=== PATIENT | male | born 1945 | race African-American/Black ===

== ENCOUNTER 2017-03-13 08:38 | Inpatient (IN) | payer MEDICARE, MEDICAID ==
[~2017-03-13] VITALS: Ht 165.1 cm; Wt 56.7 kg
[~2017-03-13 08:38] MED LIST: CIPROFLOXACIN500 M2 ORAL
[2017-03-13 09:00] VITALS: BP 181/87
[2017-03-13 09:38] LABS: MEAN CORPUSCULAR HEMOGLOBIN 29.9 PG (27.0-31.0); MEAN CORPUSCULAR HGB CONC 33.3 G/DL (32.0-36.0); MEAN CORPUSCULAR VOLUME 90 FL (80-99); MEAN PLATELET VOLUME 12.6 FL (6.5-10.1); PLATELET COUNT 130 K/UL (150-450); RED BLOOD COUNT 4.69 M/UL (4.70-6.10); RED CELL DISTRIBUTION WIDTH 12.3 % (11.6-14.8); WHITE BLOOD COUNT 12.7 K/UL (4.8-10.8)
[2017-03-13 09:40] LABS: O2 CONTENT VENOUS 43.7
[2017-03-13] MEDS ORDERED: Morphine Sulfate 4mg/ml Inj IVP ONE (09:45)
[2017-03-13 10:07] LABS: ALANINE AMINOTRANSFERASE 19 U/L (3-41); ALBUMIN/GLOBULIN RATIO 1.4 (1.0-2.7); ANION GAP 13 (5-15); ASPARTATE AMINO TRANSFERASE 29 U/L (5-40); CALCIUM 11.3 mg/dL (8.6-10.2); CARBON DIOXIDE 35 mEQ/L (20-30); CHLORIDE 96 mEQ/L (98-107); CREATININE 3.1 mg/dL (0.7-1.2); HEMOLYSIS 5; LIPASE 26 U/L (< 60); SODIUM 144 mEQ/L (135-145); TOTAL PROTEIN 8.1 g/dL (6.6-8.7)
[2017-03-13 10:11] LABS: REFLEX LACTIC ACID YES OR NO YES
[2017-03-13 10:23] LABS: BAND NEUTROPHILS % (MANUAL) 0 % (0-8); BASOPHILS % (MANUAL) 0 % (0-2); EOSINOPHILS % (MANUAL) 0 % (0-3); LYMPHOCYTES % (MANUAL) 9 % (20-45); NEUTROPHILS % (MANUAL) 87 % (45-75); PLATELET ESTIMATE DECREASED; PLATELET MORPHOLOGY NORMAL; STOMATOCYTES 1+; TOTAL CELLS COUNTED 100
[2017-03-13 10:24] LABS: MICROCYTES 1+
--- NOTE | 2017-03-13 10:30 | Emergency Room Report ---
History of Present Illness General Chief Complaint: Abdominal Pain Source: Patient Present Illness Allergies: Coded Allergies: NO KNOWN ALLERGIES (Unverified Allergy, Unknown, 03/31/15) Patient History Past Medical History: see triage record, HTN Past Surgical History: none - hernia repair, other Pertinent Family History: none Nursing Documentation-H Past Medical History: No History, Except For Hx Hypertension: Yes - glaucoma Review of Systems Gastrointestinal: Reports: abdominal pain, constipation All Other Systems: negative except mentioned in HPI Physical Exam Vital Signs Date Time Temp Pulse Resp B/P Pulse Ox O2 Delivery O2 Flow Rate FiO2 03/13/17 08:53 98.2 86 18 196/102 98 Room Air General Appearance: normal inspection, well appearing, no apparent distress, alert, GCS 15, non-toxic Head: normocephalic, atraumatic Eyes: bilateral eye EOMI, bilateral eye PERRL, bilateral eye normal inspection ENT: normal ENT inspection, normal pharynx, normal voice, moist mucus membranes Neck: normal inspection, full range of motion, supple, no bony tend Respiratory: normal inspection, lungs clear, normal breath sounds, no respiratory distress, no retraction, no wheezing, speaking full sentences, chest symmetrical Cardiovascular #1: normal inspection, regular rate, rhythm, no edema, normal capillary refill Gastrointestinal: normal inspection, other - LLQ tenderness +voluntary guarding Genitourinary: no CVA tenderness Musculoskeletal: normal inspection, back normal, normal range of motion, non- tender Neurologic: normal inspection, alert, oriented x3, responsive, motor strength/ tone normal, sensory intact, normal gait, speech normal Medical Decision Making Medicare Attestation I, Surinder Sheehan MD hereby attest that the medical record entry for date of service, 03/13/17ccurately reflects signatures/notations that I made in my capacity as MD when I treated/diagnosed the above listed Medicare beneficiary. I attest that this information is true, accurate and complete to the best of my knowledge. I understand that any falsification, omission, or concealment of material fact may subject me to administrative, civil, or criminal liability. This patient warrants hospital admission for extreme of age and has a condition that cannot be treated as outpatient. ER Course 71 yo M with 3 days of constipation and abd pain ddx: diverticulitis / intraabdominal surgical pathology/appy, mesenteric ischemia plans labs, pain control, CTA abdomen ER course: Labs: leukocytosis, cr 3.1 CT: BPH with markedly filled bladder, poss mild colitis EKG: nsr no acute changes due to patients renal failure, unable to prform CT, will perform CT with oral contrast only patient had not had urine out put since being in ED, informed that we musdt place espinoza, patient refused x 2, pt with capacity patient treated for pain Disposition: Patient is to be admitted to med-surg unit. DW with hospitalist EKG Diagnostic Results Rate: normal Rhythm: NSR ST Segments: no acute changes Last Vital Signs Date Time Temp Pulse Resp B/P Pulse Ox O2 Delivery O2 Flow Rate FiO2 03/13/17 09:00 99.1 80 23 181/87 100 Room Air Referrals: NOT CHOSEN IPA/,REFERRING (PCP) Surinder Sheehan M.D. Mar 13, 2017 10:30
[2017-03-13 12:30] VITALS: BP 180/84
--- NOTE | 2017-03-13 14:34 | Diagnostic Imaging Report ---
Indication: Abdominal pain constipation Technique: Spiral acquisitions obtained through the abdomen and pelvis. No oral contrast utilized, per emergency room physician request No IV contrast utilized, due to renal insufficiency.. Multiplanar reconstructions were generated. Total dose length product 459 mGycm. CTDIvol(s) 10 mGy. Dose reduction achieved using automated exposure control Comparison: None Findings: There is marked enlargement of the prostate, which measures 6 cm AP by 5 cm transverse by 7 cm craniocaudad. It is lobulated. It indents the bladder floor. The bladder is markedly distended. There is mild bilateral hydronephrosis and hydroureter. No focal ureteral obstructing lesion demonstrated. No renal or ureteral calculi. Lack of IV contrast limits assessment of the renal parenchyma. There is a 1.3 cm cyst in the upper pole of the right kidney, an 8 mm cyst in the interpolar region of the right kidney, a 1 cm lower pole left renal cyst. Lack of IV contrast limits assessment of the other solid organs. The liver, gallbladder, bile ducts, pancreas, spleen, adrenals are unremarkable. The ascending colon is mildly distended with fluid. Transverse and descending colon is fluid and gas filled, upper limits of normal in caliber. No evidence of diverticulosis or diverticulitis. No small bowel distention or small bowel wall thickening. The appendix is not definitely demonstrated, but no findings to suggest acute appendicitis are evident. The esophagus is mildly distended, contains contrast. The duodenum and stomach are unremarkable. Trace free intraperitoneal fluid is present. There is edema of the anterior pelvic wall subcutaneous fat. The included lung bases are clear. The bones demonstrate degenerative changes of the lower lumbar spine. Impression: Markedly enlarged lobulated prostate. Probably on the basis of benign prostatic hypertrophy, neoplasm not excludable Marked bladder distention, likely secondary to the above Mild bilateral hydronephrosis and hydroureter, likely secondary to the above Fluid-filled borderline distended proximal colon. May indicate diarrhea or mild colitis. Correlate with clinical findings Trace free intraperitoneal fluid Mildly dilated contrast-filled esophagus could indicate gastroesophageal reflux Nonspecific edema of the anterior pelvic wall subcutaneous fat Other findings as noted, including degenerative spondylosis, bilateral renal cysts The CT scanner at [facility] is accredited by the [employer] and the scans are performed using protocols designed to limit radiation exposure to as low as reasonably achievable to attain images of sufficient resolution adequate for diagnostic evaluation.
--- NOTE | 2017-03-13 15:40 | Infectious Diseases Prog Note ---
Assessment/Plan Problems: (1) UTI (urinary tract infection) Assessment & Plan: suspect due to obstructive uropathy , will send urine culture and start cefepime empirically (2) Colitis, acute Assessment & Plan: will send stool for culture and C diff and start cefepime with metronidazol empirically (3) Sepsis Assessment & Plan: due to the above will send blood culture and start cefepime with metronidazole empirically (4) Enlarged prostate Assessment & Plan: recommend urology eval , and renal US (5) KELIN (acute kidney injury) Assessment & Plan: suspect due to obstructive uropathy , recommend urology eval , espinoza cath, monitor UOP, and renal consult (6) Abdominal pain Assessment & Plan: due to the above, continue pain management as per the primary team Subjective Allergies: Coded Allergies: NO KNOWN ALLERGIES (Unverified Allergy, Unknown, 03/31/15) Objective Vital Signs Last 24 Hour Vital Signs Date Time Temp Pulse Resp B/P Pulse Ox O2 Delivery O2 Flow Rate FiO2 03/13/17 12:30 73 16 180/84 100 Room Air 03/13/17 10:35 99.1 03/13/17 09:00 99.1 80 23 181/87 100 Room Air 03/13/17 08:53 98.2 86 18 196/102 98 Room Air Height (Feet): 5 Height (Inches): 5.00 Weight (Pounds): 125 Laboratory Tests Test 03/13/17 09:20 03/13/17 09:30 03/13/17 11:45 White Blood Count 12.7 K/UL (4.8-10.8) H Red Blood Count 4.69 M/UL (4.70-6.10) L Hemoglobin 14.0 G/DL (14.2-18.0) L Hematocrit 42.1 % (42.0-52.0) Mean Corpuscular Volume 90 FL (80-99) Mean Corpuscular Hemoglobin 29.9 PG (27.0-31.0) Mean Corpuscular Hemoglobin Concent 33.3 G/DL (32.0-36.0) Red Cell Distribution Width 12.3 % (11.6-14.8) Platelet Count 130 K/UL (150-450) L Mean Platelet Volume 12.6 FL (6.5-10.1) H Neutrophils (%) (Auto) % (45.0-75.0) Lymphocytes (%) (Auto) % (20.0-45.0) Monocytes (%) (Auto) % (1.0-10.0) Eosinophils (%) (Auto) % (0.0-3.0) Basophils (%) (Auto) % (0.0-2.0) Differential Total Cells Counted 100 Neutrophils % (Manual) 87 % (45-75) H Lymphocytes % (Manual) 9 % (20-45) L Monocytes % (Manual) 4 % (1-10) Eosinophils % (Manual) 0 % (0-3) Basophils % (Manual) 0 % (0-2) Band Neutrophils 0 % (0-8) Platelet Estimate Decreased L Platelet Morphology Normal Microcytosis 1+ Stomatocytes 1+ Sodium Level 144 mEQ/L (135-145) Potassium Level 4.0 mEQ/L (3.4-4.9) Chloride Level 96 mEQ/L (98-107) L Carbon Dioxide Level 35 mEQ/L (20-30) H Anion Gap 13 (5-15) Blood Urea Nitrogen 16 mg/dL (7-23) Creatinine 3.1 mg/dL (0.7-1.2) H Estimat Glomerular Filtration Rate mL/min (>60) Glucose Level 127 mg/dL (74-106) H Lactic Acid Level 2.50 mmol/L (0.66-2.22) H 2.10 mmol/L (0.66-2.22) Calcium Level 11.3 mg/dL (8.6-10.2) H Total Bilirubin 0.7 mg/dL (0.0-1.2) Aspartate Amino Transf (AST/SGOT) 29 U/L (5-40) Alanine Aminotransferase (ALT/SGPT) 19 U/L (3-41) Alkaline Phosphatase 119 U/L (40-129) Total Protein 8.1 g/dL (6.6-8.7) Albumin 4.8 g/dL (3.5-5.2) Globulin 3.3 g/dL Albumin/Globulin Ratio 1.4 (1.0-2.7) Lipase 26 U/L (< 60) Venous Blood pH Pending Venous Blood Partial Pressure CO2 Pending Venous Blood Partial Pressure O2 Pending Venous Blood HCO3 Pending Venous Blood Total Carbon Dioxide Pending Venous Bld O2 Saturation (Measured) 43.7 Venous Blood Oxygen Saturation Pending Venous Blood Base Excess Pending Methemoglobin 0.8 Sodium (Blood Gas) Pending Current Medications Medications (Trade) Dose Ordered Sig/Dexter Route PRN Reason Start Time Stop Time Status Last Admin Dose Admin Sodium Chloride (Sodium Chloride 1000ml bag) 1,000 ml @ 125 mls/hr Q8H IV 03/13/17 10:30 04/12/17 10:29 03/13/17 10:21 Philip Jensen M.D. Mar 13, 2017 15:40
[2017-03-13] MEDS ORDERED: Cefepime HCl 1 GM in D5W 55 ML IVPB SCH (15:45)
[2017-03-13 16:00] VITALS: BP 158/92
[2017-03-13] MEDS ORDERED: Zolpidem 5mg tab ORAL PRN (16:00)
[2017-03-13] MEDS ORDERED: Mylanta II UD 30ml ORAL PRN (16:00)
[2017-03-13] MEDS ORDERED: LORazepam Inj 2mg/ml 1ml IV PRN (16:00)
[2017-03-13] MEDS ORDERED: Miralax 17gm pkt ORAL PRN (16:00)
[2017-03-13] MEDS ORDERED: Cefepime 1gm in D5W 55ml IVPB ONE (18:00)
[2017-03-13] MEDS: metroNIDAZOLE 500mg 100 ML IVPB SCH (18:16)
[2017-03-13 18:34] LABS: URIC ACID 6.7 mg/dL (3.0-7.5)
[2017-03-13] MEDS: Morphine Sulfate 2mg/ml Inj IVP PRN ×2 (18:46→22:40)
[2017-03-13 20:00] VITALS: BP 189/108
--- NOTE | 2017-03-13 20:00 | Consultation ---
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 Ct of abdomen showed enlarged prostate and hydronephrosis. He was initially refused espinoza, but eventually he agreed. Allergies: Coded Allergies: NO KNOWN ALLERGIES (Unverified Allergy, Unknown, 03/31/15) Medication History Scheduled Ciprofloxacin Hcl* (Ciprofloxacin Hcl*), 500 MG ORAL Q12H Patient History Healthcare decision maker Resuscitation status Full Code Advanced Directive on File Past Medical/Surgical History Past Medical/Surgical History: (1) Enlarged prostate (2) Hypertension Review of Systems All Other Systems: negative except mentioned in HPI Physical Exam General Appearance: WD/WN Lines, tubes and drains: peripheral, central line HEENT: normocephalic, atraumatic Neck: non-tender, normal alignment Respiratory/Chest: chest wall non-tender, lungs clear Breasts: no masses Cardiovascular/Chest: normal peripheral pulses, normal rate Abdomen: normal bowel sounds, non tender Genitourinary/Rectal: normal genital exam, normal rectal exam Extremities: normal range of motion, non-tender 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 Last 24 Hour Vital Signs Date Time Temp Pulse Resp B/P Pulse Ox O2 Delivery O2 Flow Rate FiO2 03/13/17 19:16 99.1 03/13/17 16:00 98.2 77 17 158/92 99 Room Air 03/13/17 12:30 73 16 180/84 100 Room Air 03/13/17 10:35 99.1 03/13/17 09:00 99.1 80 23 181/87 100 Room Air 03/13/17 08:53 98.2 86 18 196/102 98 Room Air Laboratory Tests Test 03/13/17 09:20 03/13/17 09:30 03/13/17 11:45 03/13/17 17:40 White Blood Count 12.7 K/UL (4.8-10.8) H Red Blood Count 4.69 M/UL (4.70-6.10) L Hemoglobin 14.0 G/DL (14.2-18.0) L Hematocrit 42.1 % (42.0-52.0) Mean Corpuscular Volume 90 FL (80-99) Mean Corpuscular Hemoglobin 29.9 PG (27.0-31.0) Mean Corpuscular Hemoglobin Concent 33.3 G/DL (32.0-36.0) Red Cell Distribution Width 12.3 % (11.6-14.8) Platelet Count 130 K/UL (150-450) L Mean Platelet Volume 12.6 FL (6.5-10.1) H Neutrophils (%) (Auto) % (45.0-75.0) Lymphocytes (%) (Auto) % (20.0-45.0) Monocytes (%) (Auto) % (1.0-10.0) Eosinophils (%) (Auto) % (0.0-3.0) Basophils (%) (Auto) % (0.0-2.0) Differential Total Cells Counted 100 Neutrophils % (Manual) 87 % (45-75) H Lymphocytes % (Manual) 9 % (20-45) L Monocytes % (Manual) 4 % (1-10) Eosinophils % (Manual) 0 % (0-3) Basophils % (Manual) 0 % (0-2) Band Neutrophils 0 % (0-8) Platelet Estimate Decreased L Platelet Morphology Normal Microcytosis 1+ Stomatocytes 1+ Sodium Level 144 mEQ/L (135-145) Potassium Level 4.0 mEQ/L (3.4-4.9) Chloride Level 96 mEQ/L (98-107) L Carbon Dioxide Level 35 mEQ/L (20-30) H Anion Gap 13 (5-15) Blood Urea Nitrogen 16 mg/dL (7-23) Creatinine 3.1 mg/dL (0.7-1.2) H Estimat Glomerular Filtration Rate mL/min (>60) Glucose Level 127 mg/dL (74-106) H Lactic Acid Level 2.50 mmol/L (0.66-2.22) H 2.10 mmol/L (0.66-2.22) Calcium Level 11.3 mg/dL (8.6-10.2) H Total Bilirubin 0.7 mg/dL (0.0-1.2) Aspartate Amino Transf (AST/SGOT) 29 U/L (5-40) Alanine Aminotransferase (ALT/SGPT) 19 U/L (3-41) Alkaline Phosphatase 119 U/L (40-129) Total Protein 8.1 g/dL (6.6-8.7) Albumin 4.8 g/dL (3.5-5.2) Globulin 3.3 g/dL Albumin/Globulin Ratio 1.4 (1.0-2.7) Lipase 26 U/L (< 60) Venous Blood pH Pending Venous Blood Partial Pressure CO2 Pending Venous Blood Partial Pressure O2 Pending Venous Blood HCO3 Pending Venous Blood Total Carbon Dioxide Pending Venous Bld O2 Saturation (Measured) 43.7 Venous Blood Oxygen Saturation Pending Venous Blood Base Excess Pending Methemoglobin 0.8 Sodium (Blood Gas) Pending Uric Acid 6.7 mg/dL (3.0-7.5) Total Creatine Kinase 967 U/L (38-174) H Height (Feet): 5 Height (Inches): 5.00 Weight (Pounds): 125 Medications Current Medications Medications (Trade) Dose Ordered Sig/Dexter Route PRN Reason Start Time Stop Time Status Last Admin Dose Admin Acetaminophen (Tylenol) 650 mg Q4H PRN ORAL fever 03/13/17 16:00 04/12/17 15:59 Al Hydroxide/Mg Hydroxide (Mylanta II) 30 ml Q6H PRN ORAL dyspepsia 03/13/17 16:00 04/12/17 15:59 Cefepime HCl/ Dextrose (Maxipime/D5W) 55 ml @ 110 mls/hr Q24H IVPB 03/14/17 18:00 03/21/17 17:59 Dextrose STAT PRN IV Hypoglycemia 03/13/17 16:00 04/12/17 15:59 Lorazepam (Ativan 2mg/ml 1ml) 0.5 mg Q4H PRN IV For Anxiety 03/13/17 16:00 03/20/17 15:59 Metronidazole (Flagyl) 100 ml @ 100 mls/hr Q8H IVPB 03/13/17 18:00 03/20/17 17:59 03/13/17 18:16 Morphine Sulfate (Morphine Sulfate) 1 mg Q4H PRN IVP For Pain 4-10 03/13/17 16:00 03/20/17 15:59 03/13/17 18:46 Ondansetron HCl (Zofran) 4 mg Q6H PRN IVP Nausea & Vomiting 03/13/17 16:00 04/12/17 15:59 Polyethylene Glycol (Miralax) 17 gm HSPRN PRN ORAL Constipation 03/13/17 16:00 04/12/17 15:59 Sodium Chloride 1,000 ml @ 125 mls/hr Q8H IV 03/13/17 10:30 04/12/17 10:29 03/13/17 18:18 Zolpidem Tartrate (Ambien) 5 mg HSPRN PRN ORAL Insomnia 03/13/17 16:00 04/12/17 15:59 Assessment/Plan Problem List: (1) Sepsis ICD Codes: A41.9 - Sepsis, unspecified organism SNOMED: 13942179 (2) Hydronephrosis ICD Codes: N13.30 - Unspecified hydronephrosis SNOMED: 87595614 (3) Enlarged prostate ICD Codes: N40.0 - Benign prostatic hyperplasia without lower urinary tract symptoms SNOMED: 152850619 (4) Hypertension ICD Codes: I10 - Essential (primary) hypertension SNOMED: 05894103 Assessment/Plan urology evaluation GI evaluation symptomatic treatment laxatives STEVEN STRONG Mar 13, 2017 20:00
--- NOTE | 2017-03-13 21:30 | Consultation ---
DATE OF CONSULTATION: 03/13/2017 INFECTIOUS DISEASE CONSULTATION CONSULTING PHYSICIAN: Philip Jensen M.D. REFERRING PHYSICIAN: Romeo Bone M.D. REASON FOR CONSULTATION: Sepsis, urinary tract infection and colitis. Recommendation for antibiotics treatment. HISTORY OF PRESENT ILLNESS: The patient is a 71-year-old male with past medical history of hypertension and glaucoma, presented to [facility] with abdominal pain, progressive for the last three days. The patient had straining with urination. Denied any hematuria. He has been constipated as per the records, but unclear if he was having diarrhea today or not. The patient was found to be hypertensive in the emergency room with blood pressure of 196/102 with a temperature of 98.2. His temperature was 99.1. The patient also was found to have significant leukocytosis. So, he underwent CT scan of the abdomen and pelvis, which showed enlarged prostate with bladder distention and hydronephrosis with hydroureter with evidence of fluid-filled distended proximal colon suspicious for colitis. So, I was consulted by the primary provider for antibiotics choice and further management. PAST MEDICAL HISTORY: Significant for glaucoma and hypertension. PAST SURGICAL HISTORY: Negative. ALLERGIES: No known drug allergy. MEDICATIONS: He received morphine sulfate in the emergency room. FAMILY HISTORY: Not contributory. SOCIAL HISTORY: He is unemployed. Lives with family. Denied using any drugs, tobacco, or alcohol. REVIEW OF SYSTEMS: A 12-point of system reviewed were all negative apart from the one I mentioned above in my History and Physical. PHYSICAL EXAMINATION: VITAL SIGNS: Temperature 99.1, pulse 73, respirations 16, blood pressure 118/84, and saturation 100% on room air. GENERAL: This is an elderly male, lying in bed, awake, alert, not in distress and comfortable. HEENT: Normocephalic and atraumatic. Pupils reactive to light. Moist oral mucosa. No exudate. NECK: Supple. No lymphadenopathy. CARDIOVASCULAR: Regular rate and rhythm. No murmur or gallop. LUNGS: Clear bilaterally. No wheezing or rhonchi. ABDOMEN: Soft. Tender in the periumbilical area. No rebound. No ascites. No guarding. EXTREMITIES: No edema or cyanosis. SKIN: No rash or hives. LABORATORY DATA: Showed white count of 12.7, hemoglobin of 14, and platelet count of 130,000. BUN 16 and creatinine 3.1. IMAGING: CT scan of the abdomen and pelvis showed enlarged lobulated prostate neoplasm not excluded, marked bladder distention likely secondary to the above, mild bilateral hydronephrosis and hydroureter likely secondary to the above fluid-filled borderline distended proximal colon may indicate diarrhea or mild colitis, trace free intraperitoneal fluid mildly dilated contrast filled esophagus could indicate reflux. ASSESSMENT AND RECOMMENDATION: 1. Urinary tract infection suspect due to obstructive uropathy and possible prostatitis. We will send urine for culture and start cefepime empiric treatment. 2. Colitis acute. We will send stool for culture and Clostridium difficile and start cefepime with Flagyl empirically. 3. Sepsis due to the above. We will send blood culture and start cefepime with metronidazole. 4. Enlarged prostate rule out malignancy. Recommend urology evaluation and renal ultrasound. 5. Acute renal failure suspect due to obstructive uropathy. Recommend urology evaluation. Hough catheter to relieve his obstruction. Monitor urine output and consider renal consult. 6. Abdominal pain due to the above. Continue pain management, as per the primary team. 7. Hypertension poorly controlled. Recommend intravenous medication and oral medication adjustment to keep his systolic blood pressure less than 140. Philip Jensen M.D. DR: CHARY JOB#: [id number] CC:
[2017-03-14] VITALS: BP 155/86
--- NOTE | 2017-03-14 | History and Physical Report ---
DATE OF ADMISSION: 03/13/2017 TIME: At 4 p.m. CONSULTANTS: 1. Lucio Amezcua M.D. 2. Juan M Davidson M.D. CHIEF COMPLAINT: Abdominal pain and constipation for three days. BRIEF HISTORY: This is a 71-year-old male, who lives at home, had some sweetish food on Saturday. Apparently, he has had some stomach ache, took some [place] and MOM. No bowel movement x3 days. The patient came in very constipated with abdominal pain, admitted to medical floor for further treatment. Currently calm in bed. No complaint. No chest pain. No shortness of breath. Slight nausea. No vomiting. No diarrhea. PAST MEDICAL HISTORY: Hypertension, BPH, and KELIN. PAST SURGICAL HISTORY: Umbilical hernia. MEDICATIONS: Include cefepime, metronidazole, morphine, polyethylene glycol, Zofran, zolpidem, lorazepam. ALLERGIES: Denies. SOCIAL HISTORY: No smoking. No alcohol. No intravenous drug use. FAMILY HISTORY: Noncontributory. PHYSICAL EXAMINATION: GENERAL: The patient is calm in bed, oriented x3, in no acute distress. VITAL SIGNS: Temperature is 99 degrees, pulse 73, respiratory rate 16, and blood pressure 180/84. CARDIOVASCULAR: No murmur. LUNGS: Distant and clear. ABDOMEN: Bowel sounds positive. Distended, soft. No guarding. No rigidity. No rebound. EXTREMITIES: No cyanosis, clubbing, or edema. NEUROLOGIC: The patient declined x4, but otherwise move all extremities without any complaint. LABORATORY DATA: Lab exam shows white count 12, hemoglobin and hematocrit 14 over 42, and platelet 130,000. BMP shows chloride 96, CO2 30, creatinine 3.1. ASSESSMENT: 1. Abdominal pain. 2. Leukocytosis. 3. Constipation. 4. Blindness. 5. Alcohol. 6. Benign prostatic hypertrophy. 7. Hypertension. 8. Acute kidney injury. PLAN: Continue premedications. NPO. IV fluids. OT and PT. Dietary evaluation. Pain control. Laxatives as needed. CBC and BMP in the morning. Dr. Amezcua, Dr. Davidson, Dr. Khalil, Dr. Albarran, and Dr. Lawton to consult. We will continue to follow this patient medically. Romeo Bone D.O. DR: Ye JOB#: [id number] CC:
[2017-03-14 00:39] LABS: APPEARANCE,URINE CLEAR; KETONES,URINE NEGATIVE (NEGATIVE); LEUKOCYTE ESTERASE ,URINE 1+ (NEGATIVE); NITRITE,URINE NEGATIVE (NEGATIVE); PH,URINE 7 (4.5-8.0); PROTEIN,URINE 1+ (NEGATIVE); UROBILINOGEN,URINE NORMAL MG/DL (0.0-1.0)
[2017-03-14 00:55] LABS: RBC,URINE 60-80 /HPF (0 - 0); WBC,URINE 0-2 /HPF (0 - 0)
[2017-03-14] MEDS: metroNIDAZOLE 500mg 100 ML IVPB SCH ×3 (01:48→17:08)
--- NOTE | 2017-03-14 03:30 | Consultation ---
DATE OF CONSULTATION: 03/13/2017 UROLOGY CONSULTATION ATTENDING PHYSICIAN: Lucio Amezcua M.D. CHIEF COMPLAINT/HISTORY OF PRESENT ILLNESS: I was asked by Dr. Amezcua to evaluate this very pleasant 71-year-old, [place] gentleman regarding a history of acute urinary retention. Briefly, the patient has a history of 3 days of progressive abdominal pain. He reports developing difficulty urinating and defecating on Saturday. Eventually, due to his pain he presented to the emergency room. He had a CT scan done, which revealed an enlarged prostate with bladder distention and hydroureteronephrosis secondary to same. There was also evidence of colitis. The patient reports a baseline history of nocturia twice a night and a weakened force of stream. He also reports sensation of incomplete emptying of his bladder at times. He has never, however, seen a urologist for any of these issues nor has he had an episode of urinary retention. He denies starting any new medications, having any surgery or anesthesia or any other significant changes that he can recall prior to this episode. PAST MEDICAL HISTORY: 1. Glaucoma. 2. Hypertension. PAST SURGICAL HISTORY: None. MEDICATIONS: Please see the chart for current medications administration details. ALLERGIES: No known drug allergies. SOCIAL HISTORY: Unremarkable for tobacco, alcohol, or drug use. FAMILY HISTORY: Noncontributory. REVIEW OF SYSTEMS: A 12-system review of systems was essentially unremarkable outside of what is described above. The patient has a very little vision due to his glaucoma. PHYSICAL EXAMINATION: GENERAL: The patient is an older [place] gentleman, awake, alert, oriented x4, pleasant, in no obvious distress. HEENT: NC/AT. EOMI. NECK: Supple. Full range of motion. Oropharynx clear. CHEST: Within normal limits. ABDOMEN: Soft, flat, nontender, and nondistended. No further suprapubic distention is noted. EXTREMITIES: Warm and well perfused. No cyanosis, clubbing, or edema. BACK: No CVA tenderness to percussion. NEUROLOGIC: Grossly nonfocal. GENITOURINARY: Reveals a circumcised male phallus. No discharge, lesions, or curvature. There is a Hough catheter now in place with pink to clear urine output. There are bilateral descended testes and cord structures with no masses or tenderness to palpation. LABORATORY DATA: White blood cell count 12.7, hematocrit 42.1, and platelets 130,000. Sodium 144, potassium 4.0, chloride 96, bicarbonate 35, BUN 16, creatinine 3.1, and glucose 127. Calcium 11.3. LFTs within normal limits. Alkaline phosphatase 119. DIAGNOSTIC IMAGING: CT scan of the abdomen and pelvis reveals marked enlargement of prostate measuring 6 x 5 x 7 cm in size. It is lobulated and indents the bladder floor. The bladder is markedly distended. There is mild bilateral hydroureteronephrosis. There is no focal ureteral obstructing lesion demonstrated or calculi. There are some bilateral renal cysts noted. There is a fluid-filled borderline distended proximal colon, which may indicate diarrhea or mild colitis. ASSESSMENT AND PLAN: In summary, Mr. Echeverria is a 71-year-old gentleman with a history of some [id number] baseline urinary symptoms presenting with 3 days history of progressive urinary retention and some difficulties with bowel function as well. This resulted in abdominal pain and bladder distention. He was noted to have acute renal insufficiency when he came here. A CT scan revealed a massive bladder distention and an enlarged prostate and hydroureteronephrosis secondary to bladder outlet obstruction. The patient initially refused Hough catheter but has since agreed to have one with relief of his distention and pain. Physical exam reveals a catheter in place with pink to clear urine output. Laboratory data is notable for acute renal insufficiency. I discussed these findings today with the patient at the bedside. We will keep him on a Hough catheter to allow his bladder a chance to recover from this episode of 3 days of retention. He is receiving antibiotics with cefepime. I will add Flomax and finasteride in an effort to improve his voiding in the future. We will arrange to have the patient follow up in the office for uroflow and cystoscopy to further evaluate the source of his episode and baseline symptoms once he is improved. Thank you for allowing me to participate in the care of this nice gentleman. Please do not hesitate to contact me for any questions that you may further have regarding his care. I will be happy to continue to follow him with you. Grabiel An M.D. DR: GAGAN JOB#: [id number] CC:
[2017-03-14 04:00] VITALS: BP 105/90
[2017-03-14 07:28] LABS: BASOPHILS % (AUTO) 0.2 % (0.0-2.0); EOSINOPHILS % (AUTO) 1.3 % (0.0-3.0); LYMPHOCYTES % (AUTO) 8.6 % (20.0-45.0); MEAN CORPUSCULAR HEMOGLOBIN 30.6 PG (27.0-31.0); MEAN CORPUSCULAR HGB CONC 33.9 G/DL (32.0-36.0); MEAN CORPUSCULAR VOLUME 90 FL (80-99); MEAN PLATELET VOLUME 10.4 FL (6.5-10.1); MONOCYTES % (AUTO) 8.6 % (1.0-10.0); NEUTROPHILS % (AUTO) 81.2 % (45.0-75.0); PLATELET COUNT 104 K/UL (150-450); RED BLOOD COUNT 4.08 M/UL (4.70-6.10); RED CELL DISTRIBUTION WIDTH 12.5 % (11.6-14.8)
[2017-03-14 07:37] LABS: ALANINE AMINOTRANSFERASE 15 U/L (3-41); ALBUMIN/GLOBULIN RATIO 1.3 (1.0-2.7); ANION GAP 11 (5-15); ASPARTATE AMINO TRANSFERASE 19 U/L (5-40); CALCIUM 8.4 mg/dL (8.6-10.2); CARBON DIOXIDE 33 mEQ/L (20-30); CHLORIDE 101 mEQ/L (98-107); CHOLESTEROL 177 mg/dL (< 200); CHOLESTEROL/HDL RATIO 3.1 (3.3-4.4); CREATININE 3.1 mg/dL (0.7-1.2); HEMOLYSIS 15; LDL CHOLESTEROL (CALC.) 104 mg/dL (60-99); SODIUM 145 mEQ/L (135-145); TOTAL PROTEIN 6.4 g/dL (6.6-8.7)
[2017-03-14 07:49] VITALS: BP 159/92
--- NOTE | 2017-03-14 09:25 | Diagnostic Imaging Report ---
Indications: Elevated renal function tests, difficulty urinating, marked distention of urinary bladder on previous CT scan Technique: Transabdominal real-time grayscale and duplex Doppler imaging of the kidneys, retroperitoneum, and urinary bladder was performed Findings: Comparison: CT abdomen pelvis 03/13/17 Right kidney measures 10.6 cm in length. Normal cortical thickness. Diffusely increased cortical echogenicity. Mild dilation of collecting system. Multiple anechoic cortical foci up to 1.5 cm. Small amount of fluid in Morison's pouch.. No stones, other focal lesions, or other obvious perinephric abnormalities. Left kidney measures 11 cm in length. Normal cortical thickness. Diffusely increased cortical echogenicity. Mild dilation of collecting system. Multiple anechoic cortical foci up to 1.2 cm. Questionable minimal adjacent fluid.. No stones, other focal lesions, or other obvious perinephric abnormalities. The intrahepatic portion of inferior vena cava is patent and normal caliber. The urinary bladder is distended, estimated volume 763 cc. Suggestion of mild mural thickening/trabeculation. Enlarged, heterogeneous, multilobulated prostate, estimated volume 74 cc. Postvoid imaging not performed.. Impression: Bilateral normal size, echogenic kidneys compatible with medical renal disease, nonspecific Bilateral renal cortical cysts Minimal bilateral perinephric perinephric fluid most likely ascites. Liver reactive to obstruction or inflammation not excludable. Mild bilateral hydronephrosis most likely secondary to urinary bladder outflow obstruction Marked distention of urinary bladder with mild mural thickening/trabeculation, slightly secondary to chronic urinary bladder outflow obstruction. Consider Hough versus suprapubic catheter replacement. Enlarged prostate
--- NOTE | 2017-03-14 09:56 | General Progress Note ---
Progress Note Progress Note patient seen and examined full note dictated ORIANA MEJIA Mar 14, 2017 09:56
[2017-03-14 11:40] VITALS: BP 136/71
--- NOTE | 2017-03-14 13:07 | Cardiology Progress Note ---
Assessment/Plan Assessment/Plan The patient is seen and examined, full consult note will be dictated. Objective Last 24 Hour Vital Signs Date Time Temp Pulse Resp B/P Pulse Ox O2 Delivery O2 Flow Rate FiO2 03/14/17 11:40 98.6 80 20 136/71 99 Room Air 03/14/17 07:49 98.8 73 20 159/92 93 Room Air 03/14/17 04:00 97.5 74 20 105/90 97 Room Air 03/14/17 00:00 97.9 64 20 155/86 97 Room Air 03/13/17 23:10 97.8 03/13/17 20:00 97.8 91 18 189/108 97 Room Air 03/13/17 16:00 98.2 77 17 158/92 99 Room Air Intake and Output 03/13/17 03/14/17 19:00 07:00 Intake Total 680 ml 1762 ml Output Total 2850 ml Balance 680 ml -1088 ml Intake Oral 500 ml 120 ml IV Total 180 ml 1642 ml Output Urine Total 2850 ml # Bowel Movements 3 1 Laboratory Tests Test 03/13/17 17:40 03/13/17 23:00 03/14/17 06:10 Uric Acid 6.7 mg/dL (3.0-7.5) Total Creatine Kinase 967 U/L (38-174) H Urine Color Pale yellow Urine Appearance Clear Urine pH 7 (4.5-8.0) Urine Specific [place] 1.005 (1.005-1.035) Urine Protein 1+ (NEGATIVE) H Urine Glucose (UA) Negative (NEGATIVE) Urine Ketones Negative (NEGATIVE) Urine Occult Blood 5+ (NEGATIVE) H Urine Nitrite Negative (NEGATIVE) Urine Bilirubin Negative (NEGATIVE) Urine Urobilinogen Normal MG/DL (0.0-1.0) Urine Leukocyte Esterase 1+ (NEGATIVE) H Urine RBC 60-80 /HPF (0 - 0) H Urine WBC 0-2 /HPF (0 - 0) Urine Squamous Epithelial Cells None /LPF (NONE/OCC) Urine Bacteria None /HPF (NONE) Urine Eosinophils None seen Urine Random Sodium 79 mmol/L Urine Potassium Timed 31 mmol/L White Blood Count 11.0 K/UL (4.8-10.8) H Red Blood Count 4.08 M/UL (4.70-6.10) L Hemoglobin 12.5 G/DL (14.2-18.0) L Hematocrit 36.8 % (42.0-52.0) L Mean Corpuscular Volume 90 FL (80-99) Mean Corpuscular Hemoglobin 30.6 PG (27.0-31.0) Mean Corpuscular Hemoglobin Concent 33.9 G/DL (32.0-36.0) Red Cell Distribution Width 12.5 % (11.6-14.8) Platelet Count 104 K/UL (150-450) L Mean Platelet Volume 10.4 FL (6.5-10.1) H Neutrophils (%) (Auto) 81.2 % (45.0-75.0) H Lymphocytes (%) (Auto) 8.6 % (20.0-45.0) L Monocytes (%) (Auto) 8.6 % (1.0-10.0) Eosinophils (%) (Auto) 1.3 % (0.0-3.0) Basophils (%) (Auto) 0.2 % (0.0-2.0) Sodium Level 145 mEQ/L (135-145) Potassium Level 4.0 mEQ/L (3.4-4.9) Chloride Level 101 mEQ/L (98-107) Carbon Dioxide Level 33 mEQ/L (20-30) H Anion Gap 11 (5-15) Blood Urea Nitrogen 20 mg/dL (7-23) Creatinine 3.1 mg/dL (0.7-1.2) H Estimat Glomerular Filtration Rate mL/min (>60) Glucose Level 93 mg/dL (74-106) Calcium Level 8.4 mg/dL (8.6-10.2) #L Total Bilirubin 0.6 mg/dL (0.0-1.2) Aspartate Amino Transf (AST/SGOT) 19 U/L (5-40) Alanine Aminotransferase (ALT/SGPT) 15 U/L (3-41) Alkaline Phosphatase 96 U/L (40-129) Total Protein 6.4 g/dL (6.6-8.7) L Albumin 3.7 g/dL (3.5-5.2) Globulin 2.7 g/dL Albumin/Globulin Ratio 1.3 (1.0-2.7) Triglycerides Level 73 mg/dL (< 150) Cholesterol Level 177 mg/dL (< 200) LDL Cholesterol 104 mg/dL (60-99) H HDL Cholesterol 58 mg/dL (> 60) Cholesterol/HDL Ratio 3.1 (3.3-4.4) L Thyroid Stimulating Hormone (TSH) 1.210 uIU/mL (0.300-4.500) Microbiology Date/Time Source Procedure Growth Status 03/13/17 20:05 Stool Stool Culture Pending Resulted 03/13/17 20:05 Stool Clostridium difficile Toxin Assay - Final Resulted LUL KO Mar 14, 2017 13:07
[2017-03-14 13:57] LABS: CREATININE, RANDOM URINE 152.9 mg/dL
--- NOTE | 2017-03-14 15:13 | General Progress Note ---
Assessment/Plan Problem List: (1) UTI (urinary tract infection) ICD Codes: N39.0 - Urinary tract infection, site not specified SNOMED: 10267107 (2) Sepsis ICD Codes: A41.9 - Sepsis, unspecified organism SNOMED: 48207672 (3) Abdominal pain ICD Codes: R10.9 - Unspecified abdominal pain SNOMED: 72073796 (4) KELIN (acute kidney injury) ICD Codes: N17.9 - Acute kidney failure, unspecified SNOMED: 41840986 (5) Enlarged prostate ICD Codes: N40.0 - Benign prostatic hyperplasia without lower urinary tract symptoms SNOMED: 985944895 Status: stable, progressing, tolerating diet Assessment/Plan ot pt diet abx cbc bmp am dc plan Subjective Constitutional: Reports: weakness Allergies: Coded Allergies: NO KNOWN ALLERGIES (Unverified Allergy, Unknown, 03/31/15) All Systems: reviewed and negative except above Subjective pos bm Objective Last 24 Hour Vital Signs Date Time Temp Pulse Resp B/P Pulse Ox O2 Delivery O2 Flow Rate FiO2 03/14/17 11:40 98.6 80 20 136/71 99 Room Air 03/14/17 07:49 98.8 73 20 159/92 93 Room Air 03/14/17 04:00 97.5 74 20 105/90 97 Room Air 03/14/17 00:00 97.9 64 20 155/86 97 Room Air 03/13/17 23:10 97.8 03/13/17 20:00 97.8 91 18 189/108 97 Room Air 03/13/17 16:00 98.2 77 17 158/92 99 Room Air Intake and Output 03/13/17 03/14/17 19:00 07:00 Intake Total 680 ml 1762 ml Output Total 2850 ml Balance 680 ml -1088 ml Intake Oral 500 ml 120 ml IV Total 180 ml 1642 ml Output Urine Total 2850 ml # Bowel Movements 3 1 Laboratory Tests 03/13/17 17:40: Uric Acid 6.7, Total Creatine Kinase 967H 03/13/17 23:00: Urine Color Pale yellow, Urine Appearance Clear, Urine pH 7, Urine Specific [place] 1.005, Urine Protein 1+H, Urine Glucose (UA) Negative, Urine Ketones Negative, Urine Occult Blood 5+H, Urine Nitrite Negative, Urine Bilirubin Negative, Urine Urobilinogen Normal, Urine Leukocyte Esterase 1+H, Urine RBC 60- 80H, Urine WBC 0-2, Urine Squamous Epithelial Cells None, Urine Bacteria None, Urine Eosinophils None seen, Urine Random Sodium 79, Urine Potassium Timed 31 03/14/17 06:10: White Blood Count 11.0H, Red Blood Count 4.08L, Hemoglobin 12.5L, Hematocrit 36.8L, Mean Corpuscular Volume 90, Mean Corpuscular Hemoglobin 30.6, Mean Corpuscular Hemoglobin Concent 33.9, Red Cell Distribution Width 12.5, Platelet Count 104L, Mean Platelet Volume 10.4H, Neutrophils (%) (Auto) 81.2H, Lymphocytes (%) (Auto) 8.6L, Monocytes (%) (Auto) 8.6, Eosinophils (%) (Auto) 1.3, Basophils (%) (Auto) 0.2, Sodium Level 145, Potassium Level 4.0, Chloride Level 101, Carbon Dioxide Level 33H, Anion Gap 11, Blood Urea Nitrogen 20, Creatinine 3.1H, Estimat Glomerular Filtration Rate , Glucose Level 93, Calcium Level 8.4#L, Total Bilirubin 0.6, Aspartate Amino Transf (AST/SGOT) 19, Alanine Aminotransferase (ALT/SGPT) 15, Alkaline Phosphatase 96, Total Protein 6.4L, Albumin 3.7, Globulin 2.7, Albumin/Globulin Ratio 1.3, Triglycerides Level 73, Cholesterol Level 177, LDL Cholesterol 104H, HDL Cholesterol 58, Cholesterol/ HDL Ratio 3.1L, Thyroid Stimulating Hormone (TSH) 1.210 03/14/17 13:00: Urine Random Creatinine [Pending], Urine Random Microalbumin [Pending], Urine Random Total Protein 182, Urine Creatinine 152.9, Urine Microalbumin/Creatinine Ratio [Pending] Height (Feet): 5 Height (Inches): 5.00 Weight (Pounds): 125 General Appearance: alert EENT: normal ENT inspection Neck: normal alignment Cardiovascular: normal rate Respiratory/Chest: chest wall non-tender, lungs clear, normal breath sounds Abdomen: normal bowel sounds, non tender, soft Extremities: normal inspection Edema: no edema noted Arm (L), no edema noted Arm (R), no edema noted Leg (L), no edema noted Leg (R), no edema noted Pedal (L), no edema noted Pedal (R), no edema noted Generalized Neurologic: responsive, motor weakness Skin: normal pigmentation, warm/dry KEN CANTOR Mar 14, 2017 15:13
--- NOTE | 2017-03-14 15:51 | Infectious Diseases Prog Note ---
Assessment/Plan Problems: (1) UTI (urinary tract infection) Assessment & Plan: suspect due to obstructive uropathy , await urine culture and continue cefepime empirically. (2) Colitis, acute Assessment & Plan: improved, with negative stool for C diff . on cefepime , will stop metronidazole empirically (3) Sepsis Assessment & Plan: due to the above will send blood culture and start cefepime empirically (4) Enlarged prostate Assessment & Plan: recommend urology eval , and renal US (5) KELIN (acute kidney injury) Assessment & Plan: suspect due to obstructive uropathy , recommend urology eval , espinoza cath, monitor UOP, and renal consult (6) Abdominal pain Assessment & Plan: improved , due to the above, continue pain management as per the primary team Subjective Constitutional: Reports: no symptoms HEENT: Reports: no symptoms Respiratory: Reports: no symptoms Breasts: Reports: no symptoms Cardiovascular: Reports: no symptoms Gastrointestinal/Abdominal: Reports: no symptoms Genitourinary: Reports: no symptoms Neurologic: Reports: no symptoms Psychiatric: Reports: no symptoms Skin: Reports: no symptoms Endocrine: Reports: no symptoms Hematologic: Reports: no symptoms Allergies: Coded Allergies: NO KNOWN ALLERGIES (Unverified Allergy, Unknown, 03/31/15) Objective Vital Signs Last 24 Hour Vital Signs Date Time Temp Pulse Resp B/P Pulse Ox O2 Delivery O2 Flow Rate FiO2 03/14/17 11:40 98.6 80 20 136/71 99 Room Air 03/14/17 07:49 98.8 73 20 159/92 93 Room Air 03/14/17 04:00 97.5 74 20 105/90 97 Room Air 03/14/17 00:00 97.9 64 20 155/86 97 Room Air 03/13/17 23:10 97.8 03/13/17 20:00 97.8 91 18 189/108 97 Room Air 03/13/17 16:00 98.2 77 17 158/92 99 Room Air Height (Feet): 5 Height (Inches): 5.00 Weight (Pounds): 125 General Appearance: WD/WN, no acute distress HEENT: normocephalic, atraumatic, anicteric, mucous membranes moist Respiratory/Chest: chest wall non-tender, lungs clear, normal breath sounds, no respiratory distress, no accessory muscle use Cardiovascular: normal peripheral pulses, normal rate, regular rhythm, no gallop/murmur, no JVD Abdomen: normal bowel sounds, soft, non tender, no organomegaly, non distended , no mass, no scars Extremities: no cyanosis, no clubbing Skin: no rash, no lesions, no ulcers Neurologic/Psychiatric: alert, oriented x 3 Microbiology Date/Time Source Procedure Growth Status 03/13/17 20:05 Stool Stool Culture Pending Resulted 03/13/17 20:05 Stool Clostridium difficile Toxin Assay - Final Resulted Laboratory Tests Test 03/13/17 17:40 03/13/17 23:00 03/14/17 06:10 03/14/17 13:00 Uric Acid 6.7 mg/dL (3.0-7.5) Total Creatine Kinase 967 U/L (38-174) H Urine Color Pale yellow Urine Appearance Clear Urine pH 7 (4.5-8.0) Urine Specific [place] 1.005 (1.005-1.035) Urine Protein 1+ (NEGATIVE) H Urine Glucose (UA) Negative (NEGATIVE) Urine Ketones Negative (NEGATIVE) Urine Occult Blood 5+ (NEGATIVE) H Urine Nitrite Negative (NEGATIVE) Urine Bilirubin Negative (NEGATIVE) Urine Urobilinogen Normal MG/DL (0.0-1.0) Urine Leukocyte Esterase 1+ (NEGATIVE) H Urine RBC 60-80 /HPF (0 - 0) H Urine WBC 0-2 /HPF (0 - 0) Urine Squamous Epithelial Cells None /LPF (NONE/OCC) Urine Bacteria None /HPF (NONE) Urine Eosinophils None seen Urine Random Sodium 79 mmol/L Urine Potassium Timed 31 mmol/L White Blood Count 11.0 K/UL (4.8-10.8) H Red Blood Count 4.08 M/UL (4.70-6.10) L Hemoglobin 12.5 G/DL (14.2-18.0) L Hematocrit 36.8 % (42.0-52.0) L Mean Corpuscular Volume 90 FL (80-99) Mean Corpuscular Hemoglobin 30.6 PG (27.0-31.0) Mean Corpuscular Hemoglobin Concent 33.9 G/DL (32.0-36.0) Red Cell Distribution Width 12.5 % (11.6-14.8) Platelet Count 104 K/UL (150-450) L Mean Platelet Volume 10.4 FL (6.5-10.1) H Neutrophils (%) (Auto) 81.2 % (45.0-75.0) H Lymphocytes (%) (Auto) 8.6 % (20.0-45.0) L Monocytes (%) (Auto) 8.6 % (1.0-10.0) Eosinophils (%) (Auto) 1.3 % (0.0-3.0) Basophils (%) (Auto) 0.2 % (0.0-2.0) Sodium Level 145 mEQ/L (135-145) Potassium Level 4.0 mEQ/L (3.4-4.9) Chloride Level 101 mEQ/L (98-107) Carbon Dioxide Level 33 mEQ/L (20-30) H Anion Gap 11 (5-15) Blood Urea Nitrogen 20 mg/dL (7-23) Creatinine 3.1 mg/dL (0.7-1.2) H Estimat Glomerular Filtration Rate mL/min (>60) Glucose Level 93 mg/dL (74-106) Calcium Level 8.4 mg/dL (8.6-10.2) #L Total Bilirubin 0.6 mg/dL (0.0-1.2) Aspartate Amino Transf (AST/SGOT) 19 U/L (5-40) Alanine Aminotransferase (ALT/SGPT) 15 U/L (3-41) Alkaline Phosphatase 96 U/L (40-129) Total Protein 6.4 g/dL (6.6-8.7) L Albumin 3.7 g/dL (3.5-5.2) Globulin 2.7 g/dL Albumin/Globulin Ratio 1.3 (1.0-2.7) Triglycerides Level 73 mg/dL (< 150) Cholesterol Level 177 mg/dL (< 200) LDL Cholesterol 104 mg/dL (60-99) H HDL Cholesterol 58 mg/dL (> 60) Cholesterol/HDL Ratio 3.1 (3.3-4.4) L Thyroid Stimulating Hormone (TSH) 1.210 uIU/mL (0.300-4.500) Urine Random Creatinine Pending Urine Random Microalbumin Pending Urine Random Total Protein 182 mg/dL Urine Creatinine 152.9 mg/dL Urine Microalbumin/Creatinine Ratio Pending Current Medications Medications (Trade) Dose Ordered Sig/Dexter Route PRN Reason Start Time Stop Time Status Last Admin Dose Admin Acetaminophen (Tylenol) 650 mg Q4H PRN ORAL fever 03/13/17 16:00 04/12/17 15:59 Al Hydroxide/Mg Hydroxide (Mylanta II) 30 ml Q6H PRN ORAL dyspepsia 03/13/17 16:00 04/12/17 15:59 Cefepime HCl/ Dextrose (Maxipime/D5W) 55 ml @ 110 mls/hr Q24H IVPB 03/14/17 18:00 03/21/17 17:59 Dextrose STAT PRN IV Hypoglycemia 03/13/17 16:00 04/12/17 15:59 Finasteride (Proscar) 5 mg DAILY ORAL 03/14/17 09:00 04/13/17 08:59 03/14/17 09:02 Lorazepam (Ativan 2mg/ml 1ml) 0.5 mg Q4H PRN IV For Anxiety 03/13/17 16:00 03/20/17 15:59 Metronidazole (Flagyl) 100 ml @ 100 mls/hr Q8H IVPB 03/13/17 18:00 03/20/17 17:59 03/14/17 09:02 Morphine Sulfate (Morphine Sulfate) 1 mg Q4H PRN IVP For Pain 4-10 03/13/17 16:00 03/20/17 15:59 03/13/17 22:40 Ondansetron HCl (Zofran) 4 mg Q6H PRN IVP Nausea & Vomiting 03/13/17 16:00 04/12/17 15:59 Polyethylene Glycol (Miralax) 17 gm HSPRN PRN ORAL Constipation 03/13/17 16:00 04/12/17 15:59 Sodium Chloride 1,000 ml @ 125 mls/hr Q8H IV 03/13/17 10:30 04/12/17 10:29 03/14/17 09:02 Tamsulosin HCl (Flomax) 0.4 mg BEDTIME ORAL 03/14/17 21:00 04/13/17 20:59 Zolpidem Tartrate (Ambien) 5 mg HSPRN PRN ORAL Insomnia 03/13/17 16:00 04/12/17 15:59 Philip Jensen M.D. Mar 14, 2017 15:51
[2017-03-14 16:00] VITALS: BP 141/71
--- NOTE | 2017-03-14 16:37 | GI Initial Consult Note ---
History of Present Illness General Date patient seen: Mar 14, 2017 Time patient seen: 16:30 Reason for Hospitalization: Abdominal Pain Referring physician: KEN CANTOR Reason for Consultation: ANEMIA Present Illness HPI BRIEF HISTORY: This is a 71-year-old male, who lives at home, had some sweetish food on Saturday. Apparently, he has had some stomach ache, took some Sheron-Hamer and MOM. No bowel movement x3 days. The patient came in very constipated with abdominal pain, admitted to medical floor for further treatment. Currently calm in bed. No complaint. No chest pain. No shortness of breath. Slight nausea. No vomiting. No diarrhea. GI Consult. HPI as noted above. GI consulted for anemia. Pt seen on floor, awake A&Ox4 NAD with no active N/V/D. Patient is legally blind. He presents today with complaint of abdominal pain that has been relieved s/p espinoza catheter placement. Patient has mild anemia and Mildly dilated contrast-filled esophagus could indicate gastroesophageal reflux as shown on recent CT. The patient has no history of any endoscopic procedures. Procedure: CT Abdomen Pelvis WO Contrast Indication: Abdominal pain constipation Impression: Markedly enlarged lobulated prostate. Probably on the basis of benign prostatic hypertrophy, neoplasm not excludable. Marked bladder distention, likely secondary to the above Mild bilateral hydronephrosis and hydroureter, likely secondary to the above Fluid-filled borderline distended proximal colon. May indicate diarrhea or mild colitis. Correlate with clinical findings Trace free intraperitoneal fluid Mildly dilated contrast-filled esophagus could indicate gastroesophageal reflux Nonspecific edema of the anterior pelvic wall subcutaneous fat Other findings as noted, including degenerative spondylosis, bilateral renal cysts Home Meds Active Scripts Ciprofloxacin Hcl* (CIPROFLOXACIN HCL*) 500 Mg Tablet, 500 MG ORAL Q12H, #28 TAB Prov:SANTOS OLIVEIRA 03/31/15 Med list reviewed/reconciled: Yes Allergies: Coded Allergies: NO KNOWN ALLERGIES (Unverified Allergy, Unknown, 03/31/15) Patient History History Provided By: Patient, Medical Record [facility] Narrative PAST MEDICAL HISTORY: Hypertension, BPH, and KELIN. PAST SURGICAL HISTORY: Umbilical hernia. Social History: Denies: alcohol use, drug use, other, smoking Review of Systems All Other Systems: negative except mentioned in HPI Physical Exam Vital Signs Date Time Temp Pulse Resp B/P Pulse Ox O2 Delivery O2 Flow Rate FiO2 03/13/17 08:53 98.2 86 18 196/102 98 Room Air Sp02 EP Interpretation: reviewed Labs Laboratory Tests Test 03/13/17 17:40 03/13/17 23:00 03/14/17 06:10 03/14/17 13:00 Uric Acid 6.7 mg/dL (3.0-7.5) Total Creatine Kinase 967 U/L (38-174) H Urine Color Pale yellow Urine Appearance Clear Urine pH 7 (4.5-8.0) Urine Specific [place] 1.005 (1.005-1.035) Urine Protein 1+ (NEGATIVE) H Urine Glucose (UA) Negative (NEGATIVE) Urine Ketones Negative (NEGATIVE) Urine Occult Blood 5+ (NEGATIVE) H Urine Nitrite Negative (NEGATIVE) Urine Bilirubin Negative (NEGATIVE) Urine Urobilinogen Normal MG/DL (0.0-1.0) Urine Leukocyte Esterase 1+ (NEGATIVE) H Urine RBC 60-80 /HPF (0 - 0) H Urine WBC 0-2 /HPF (0 - 0) Urine Squamous Epithelial Cells None /LPF (NONE/OCC) Urine Bacteria None /HPF (NONE) Urine Eosinophils None seen Urine Random Sodium 79 mmol/L Urine Potassium Timed 31 mmol/L White Blood Count 11.0 K/UL (4.8-10.8) H Red Blood Count 4.08 M/UL (4.70-6.10) L Hemoglobin 12.5 G/DL (14.2-18.0) L Hematocrit 36.8 % (42.0-52.0) L Mean Corpuscular Volume 90 FL (80-99) Mean Corpuscular Hemoglobin 30.6 PG (27.0-31.0) Mean Corpuscular Hemoglobin Concent 33.9 G/DL (32.0-36.0) Red Cell Distribution Width 12.5 % (11.6-14.8) Platelet Count 104 K/UL (150-450) L Mean Platelet Volume 10.4 FL (6.5-10.1) H Neutrophils (%) (Auto) 81.2 % (45.0-75.0) H Lymphocytes (%) (Auto) 8.6 % (20.0-45.0) L Monocytes (%) (Auto) 8.6 % (1.0-10.0) Eosinophils (%) (Auto) 1.3 % (0.0-3.0) Basophils (%) (Auto) 0.2 % (0.0-2.0) Sodium Level 145 mEQ/L (135-145) Potassium Level 4.0 mEQ/L (3.4-4.9) Chloride Level 101 mEQ/L (98-107) Carbon Dioxide Level 33 mEQ/L (20-30) H Anion Gap 11 (5-15) Blood Urea Nitrogen 20 mg/dL (7-23) Creatinine 3.1 mg/dL (0.7-1.2) H Estimat Glomerular Filtration Rate mL/min (>60) Glucose Level 93 mg/dL (74-106) Calcium Level 8.4 mg/dL (8.6-10.2) #L Total Bilirubin 0.6 mg/dL (0.0-1.2) Aspartate Amino Transf (AST/SGOT) 19 U/L (5-40) Alanine Aminotransferase (ALT/SGPT) 15 U/L (3-41) Alkaline Phosphatase 96 U/L (40-129) Total Protein 6.4 g/dL (6.6-8.7) L Albumin 3.7 g/dL (3.5-5.2) Globulin 2.7 g/dL Albumin/Globulin Ratio 1.3 (1.0-2.7) Triglycerides Level 73 mg/dL (< 150) Cholesterol Level 177 mg/dL (< 200) LDL Cholesterol 104 mg/dL (60-99) H HDL Cholesterol 58 mg/dL (> 60) Cholesterol/HDL Ratio 3.1 (3.3-4.4) L Thyroid Stimulating Hormone (TSH) 1.210 uIU/mL (0.300-4.500) Urine Random Creatinine Pending Urine Random Microalbumin Pending Urine Random Total Protein 182 mg/dL Urine Creatinine 152.9 mg/dL Urine Microalbumin/Creatinine Ratio Pending General Appearance: well appearing, no apparent distress, alert Head: normocephalic EENT: PERRL/EOMI, normal ENT inspection Neck: full range of motion, supple Respiratory: lungs clear, normal breath sounds, no respiratory distress Cardiovascular: normal rate Gastrointestinal: normal inspection, non tender, soft Musculoskeletal: back normal Neurologic: normal inspection, alert, oriented x3, responsive Psychiatric: normal inspection, judgement/insight normal, memory normal Skin: normal inspection, normal color, no rash, warm/dry Lymphatic: normal inspection, no adenopathy Current Medications Current Medications Medications (Trade) Dose Ordered Sig/Dexter Route PRN Reason Start Time Stop Time Status Last Admin Dose Admin Acetaminophen (Tylenol) 650 mg Q4H PRN ORAL fever 03/13/17 16:00 04/12/17 15:59 Al Hydroxide/Mg Hydroxide (Mylanta II) 30 ml Q6H PRN ORAL dyspepsia 03/13/17 16:00 04/12/17 15:59 Cefepime HCl/ Dextrose (Maxipime/D5W) 55 ml @ 110 mls/hr Q24H IVPB 03/14/17 18:00 03/21/17 17:59 Dextrose STAT PRN IV Hypoglycemia 03/13/17 16:00 04/12/17 15:59 Finasteride (Proscar) 5 mg DAILY ORAL 03/14/17 09:00 04/13/17 08:59 03/14/17 09:02 Lorazepam (Ativan 2mg/ml 1ml) 0.5 mg Q4H PRN IV For Anxiety 03/13/17 16:00 03/20/17 15:59 Metronidazole (Flagyl) 100 ml @ 100 mls/hr Q8H IVPB 03/13/17 18:00 03/20/17 17:59 03/14/17 09:02 Morphine Sulfate (Morphine Sulfate) 1 mg Q4H PRN IVP For Pain 4-10 03/13/17 16:00 03/20/17 15:59 03/13/17 22:40 Ondansetron HCl (Zofran) 4 mg Q6H PRN IVP Nausea & Vomiting 03/13/17 16:00 04/12/17 15:59 Polyethylene Glycol (Miralax) 17 gm HSPRN PRN ORAL Constipation 03/13/17 16:00 04/12/17 15:59 Sodium Chloride 1,000 ml @ 125 mls/hr Q8H IV 03/13/17 10:30 04/12/17 10:29 03/14/17 09:02 Tamsulosin HCl (Flomax) 0.4 mg BEDTIME ORAL 03/14/17 21:00 04/13/17 20:59 Zolpidem Tartrate (Ambien) 5 mg HSPRN PRN ORAL Insomnia 03/13/17 16:00 04/12/17 15:59 GI: Plan Problems: (1) GERD (gastroesophageal reflux disease) (2) Anemia Plan CT AP reviewed >> Mildly dilated contrast-filled esophagus could indicate gastroesophageal reflux. EGD scheduled for tomorrow. - diet, NPO @ MN. - hold all blood thinners. anemia work up OB stool r/o GI bleed monitor H&H, transfuse prn ppi fu labs Discussed with Dr. Davidson. Thank you for referring this patient, we will follow. Sosa Rodriguez N.P. Mar 14, 2017 16:37
--- NOTE | 2017-03-14 16:42 | Pulmonology Progress Note ---
Assessment/Plan Problems: (1) Sepsis (2) Hydronephrosis (3) Enlarged prostate (4) Hypertension Assessment/Plan pt had a BM for EGD in am all notes appreciated all meds reviewed Subjective ROS Limited/Unobtainable: No Constitutional: Reports: no symptoms HEENT: Repors: no symptoms Respiratory: Reports: no symptoms Allergies: Coded Allergies: NO KNOWN ALLERGIES (Unverified Allergy, Unknown, 03/31/15) Objective Last 24 Hour Vital Signs Date Time Temp Pulse Resp B/P Pulse Ox O2 Delivery O2 Flow Rate FiO2 03/14/17 16:00 98.2 80 20 141/71 97 Room Air 03/14/17 11:40 98.6 80 20 136/71 99 Room Air 03/14/17 07:49 98.8 73 20 159/92 93 Room Air 03/14/17 04:00 97.5 74 20 105/90 97 Room Air 03/14/17 00:00 97.9 64 20 155/86 97 Room Air 03/13/17 23:10 97.8 03/13/17 20:00 97.8 91 18 189/108 97 Room Air Intake and Output 03/13/17 03/14/17 19:00 07:00 Intake Total 680 ml 1762 ml Output Total 2850 ml Balance 680 ml -1088 ml Intake Oral 500 ml 120 ml IV Total 180 ml 1642 ml Output Urine Total 2850 ml # Bowel Movements 3 1 General Appearance: WD/WN HEENT: normocephalic, atraumatic Respiratory/Chest: chest wall non-tender, lungs clear Cardiovascular: normal peripheral pulses, normal rate Genitourinary: normal external genitalia Extremities: no cyanosis Neurologic/Psychiatric: prior authorization technician II-XII grossly normal Lymphatic: no neck adenopathy Musculoskeletal: normal muscle bulk Microbiology Date/Time Source Procedure Growth Status 03/13/17 20:05 Stool Stool Culture Pending Resulted 03/13/17 20:05 Stool Clostridium difficile Toxin Assay - Final Resulted Laboratory Tests 03/13/17 17:40: Uric Acid 6.7, Total Creatine Kinase 967H 03/13/17 23:00: Urine Color Pale yellow, Urine Appearance Clear, Urine pH 7, Urine Specific [place] 1.005, Urine Protein 1+H, Urine Glucose (UA) Negative, Urine Ketones Negative, Urine Occult Blood 5+H, Urine Nitrite Negative, Urine Bilirubin Negative, Urine Urobilinogen Normal, Urine Leukocyte Esterase 1+H, Urine RBC 60- 80H, Urine WBC 0-2, Urine Squamous Epithelial Cells None, Urine Bacteria None, Urine Eosinophils None seen, Urine Random Sodium 79, Urine Potassium Timed 31 03/14/17 06:10: White Blood Count 11.0H, Red Blood Count 4.08L, Hemoglobin 12.5L, Hematocrit 36.8L, Mean Corpuscular Volume 90, Mean Corpuscular Hemoglobin 30.6, Mean Corpuscular Hemoglobin Concent 33.9, Red Cell Distribution Width 12.5, Platelet Count 104L, Mean Platelet Volume 10.4H, Neutrophils (%) (Auto) 81.2H, Lymphocytes (%) (Auto) 8.6L, Monocytes (%) (Auto) 8.6, Eosinophils (%) (Auto) 1.3, Basophils (%) (Auto) 0.2, Sodium Level 145, Potassium Level 4.0, Chloride Level 101, Carbon Dioxide Level 33H, Anion Gap 11, Blood Urea Nitrogen 20, Creatinine 3.1H, Estimat Glomerular Filtration Rate , Glucose Level 93, Calcium Level 8.4#L, Total Bilirubin 0.6, Aspartate Amino Transf (AST/SGOT) 19, Alanine Aminotransferase (ALT/SGPT) 15, Alkaline Phosphatase 96, Total Protein 6.4L, Albumin 3.7, Globulin 2.7, Albumin/Globulin Ratio 1.3, Triglycerides Level 73, Cholesterol Level 177, LDL Cholesterol 104H, HDL Cholesterol 58, Cholesterol/ HDL Ratio 3.1L, Thyroid Stimulating Hormone (TSH) 1.210 03/14/17 13:00: Urine Random Creatinine [Pending], Urine Random Microalbumin [Pending], Urine Random Total Protein 182, Urine Creatinine 152.9, Urine Microalbumin/Creatinine Ratio [Pending] Current Medications Medications (Trade) Dose Ordered Sig/Dexter Route PRN Reason Start Time Stop Time Status Last Admin Dose Admin Acetaminophen (Tylenol) 650 mg Q4H PRN ORAL fever 03/13/17 16:00 04/12/17 15:59 Al Hydroxide/Mg Hydroxide (Mylanta II) 30 ml Q6H PRN ORAL dyspepsia 03/13/17 16:00 04/12/17 15:59 Cefepime HCl/ Dextrose (Maxipime/D5W) 55 ml @ 110 mls/hr Q24H IVPB 03/14/17 18:00 03/21/17 17:59 Dextrose STAT PRN IV Hypoglycemia 03/13/17 16:00 04/12/17 15:59 Finasteride (Proscar) 5 mg DAILY ORAL 03/14/17 09:00 04/13/17 08:59 03/14/17 09:02 Lorazepam (Ativan 2mg/ml 1ml) 0.5 mg Q4H PRN IV For Anxiety 03/13/17 16:00 03/20/17 15:59 Metronidazole (Flagyl) 100 ml @ 100 mls/hr Q8H IVPB 03/13/17 18:00 03/20/17 17:59 03/14/17 09:02 Morphine Sulfate (Morphine Sulfate) 1 mg Q4H PRN IVP For Pain 4-10 03/13/17 16:00 03/20/17 15:59 03/13/17 22:40 Ondansetron HCl (Zofran) 4 mg Q6H PRN IVP Nausea & Vomiting 03/13/17 16:00 04/12/17 15:59 Polyethylene Glycol (Miralax) 17 gm HSPRN PRN ORAL Constipation 03/13/17 16:00 04/12/17 15:59 Sodium Chloride 1,000 ml @ 125 mls/hr Q8H IV 03/13/17 10:30 04/12/17 10:29 03/14/17 09:02 Tamsulosin HCl (Flomax) 0.4 mg BEDTIME ORAL 03/14/17 21:00 04/13/17 20:59 Zolpidem Tartrate (Ambien) 5 mg HSPRN PRN ORAL Insomnia 03/13/17 16:00 04/12/17 15:59 STEVEN STRONG Mar 14, 2017 16:42
--- NOTE | 2017-03-14 16:47 | Consultation ---
DATE OF CONSULTATION: 03/14/2017 NEPHROLOGY CONSULTATION REFERRING PHYSICIAN: Romeo Bone D.O. REASON FOR CONSULTATION: Acute renal failure. HISTORY OF PRESENT ILLNESS: The patient is a 71-year-old male, very pleasant with past medical history significant for history of hypertension, glaucoma, and legally blind for last 20 years. He also has a history of umbilical hernia repair. He presented to [facility] emergency room complaining of constipation and also having problem urinating and urinary retention. Upon arrival in the ER, the patient found to have an accelerated blood pressure of 196/102. The patient also found to have a low-grade fever. Upon evaluation in the ER, the patient had a CT of the abdomen, which revealed bilateral hydronephrosis and bladder distention. Consequently, the patient received a Hough catheter and drained urine, found to have a creatinine of 3.1. I was called for management of renal disease and electrolyte imbalance. PAST MEDICAL HISTORY: 1. History of hypertension. 2. Glaucoma. 3. History of legally blind. PAST SURGICAL HISTORY: He has a history of umbilical hernia repair. ALLERGIES: No known drug allergies. MEDICATIONS: Current medications are includin. Flomax 0.4 mg p.o. daily. 2. Cefepime. 3. Proscar 5 mg daily. 4. Tylenol 650 mg q.6 hours p.r.n. pain. 5. Zofran 4 mg IV p.r.n. nausea and vomiting. 6. Ambien 5 mg p.o. daily. SOCIAL HISTORY: The patient is unemployed, lives with his . Denies any history of tobacco, alcohol, or drug use. REVIEW OF SYSTEMS: General: He denies any weight loss, weight gain, fever, chills, or night sweats. Head And Neck: Denies any dysphagia, odynophagia, blurry vision, headache, or neck stiffness. Pulmonary: Denies any shortness of breath, cough, or sputum. Cardiovascular: He denies any chest pain or palpitation. Gastrointestinal: He denies any nausea, vomiting, diarrhea, hematemesis, or hematochezia. Genitourinary: He is complaining of urinary retention, bladder distention, and currently has a Hough catheter, which is draining hematuria. PHYSICAL EXAMINATION: VITAL SIGNS: The patient has a temperature of 98 degrees, blood pressure 158/92, pulse rate of 77, and respiratory rate of 17. HEAD AND NECK: No JVP. No LAD. No thyromegaly. Extraocular movement intact. Pupils are reactive to light and accommodation. LUNGS: Clear to auscultation. CARDIAC: Regular rate and rhythm. S1 and S2. No murmur. No rub. ABDOMEN: Soft, nontender, and nondistended. EXTREMITIES: No edema. No clubbing. No cyanosis. NEUROLOGIC: Cranial nerves II to XII within normal limits. Upper and lower extremities are grossly intact. LABORATORY VALUES: The patient had WBC count of 11, hemoglobin of 12.5, hematocrit of 36, and platelet count of 104,000. Chemistry reveals sodium 145, potassium 4, chloride 101, bicarb 33 , BUN of 20, creatinine of 3.1, glucose of 93, and calcium of 8.4. AST of 19, ALT of 15, and alkaline phosphatase of 96. Cholesterol of 177, LDL 104, and HDL of 58. UA reveals specific gravity of 1.005, protein is 1+, random urine sodium . The patient has RBC of 60 to 80 and WBC count of 0 to 2. ASSESSMENT: 1. Acute renal failure, the etiology of acute renal failure are including acute tubular necrosis, obstructive uropathy versus hypertensive nephrosclerosis. 2. Hypocalcemia. 3. Hematuria. PLAN: The plan for the patient to check the random urine protein creatinine ratio to calculate the proteinuria. Check the urine sodium and creatinine to calculate fractional excretion of sodium. I would repeat ultrasound of the kidney for evaluation of kidney size. Continue with IV hydration. I would like to thank, Dr. Romeo Bone, for allowing me to participate in the care of this patient. Tamia Lawton M.D. DR: SCARLET JOB#: [id number] CC:
[2017-03-14] MEDS: Cefepime 500mg in D5W 55ml IVPB SCH (17:55)
[2017-03-14 19:55] VITALS: BP 155/79
[2017-03-14] MEDS: Tamsulosin 0.4mg cap ORAL SCH (21:03)
[2017-03-15] VITALS: BP 169/95
--- NOTE | 2017-03-15 00:53 | Cardiology Report ---
APPROVED REPORT EKG Measurement Heart [id number] Normal sinus rhythm Possible Left atrial enlargement Borderline ECG
[2017-03-15] MEDS: metroNIDAZOLE 500mg 100 ML IVPB SCH ×2 (01:42→09:21)
[2017-03-15 04:00] VITALS: BP 159/80
--- NOTE | 2017-03-15 06:16 | Consultation ---
DATE OF CONSULTATION: 03/14/2017 CARDIOLOGY CONSULTATION REFERRING PHYSICIAN: Romeo Bone D.O. REASON FOR CONSULTATION: Management of accelerated hypertension. HISTORY OF PRESENT ILLNESS: The patient is a very unfortunate 71-year-old legally blind gentleman, who presents to the hospital with abdominal pain, straining to urination, and constipation for about three days. The patient in the emergency department was found to have blood pressure of 196/102 mmHg. Cardiology consultation was made at the request of Dr. Bone for evaluation and management of accelerated hypertension. At the bedside, he denies chest pain and shortness of breath. A CT scan of abdomen and pelvis for evaluation of abdominal pain revealed enlarged prostate with bladder distention and hydronephrosis as well as hydroureter. His coronary artery risk factors include hypertension and age. PAST MEDICAL HISTORY: Glaucoma, hypertension, and legally blind. PAST SURGICAL HISTORY: None. MEDICATIONS: Ciprofloxacin 500 mg twice daily. ALLERGIES: No known drug allergies. REVIEW OF SYSTEMS: HEENT: Denies any headache or diplopia. The patient is legally blind. Constitutional: He complains of generalized weakness. Denies any fever, chills, or night sweats. Cardiovascular: Denies any chest pain. No shortness of breath, PND, orthopnea, or leg swelling. Pulmonary: Denies any cough, hemoptysis, or wheezing. Gastrointestinal: History of abdominal pain, but no nausea, vomiting, diarrhea, or GI bleed. The patient also had some constipation. Genitourinary: Denies any hematuria, dysuria, or incontinence. Neurology: Denies any motor dysfunction, sensory deficit, or altered speech. PHYSICAL EXAMINATION: VITAL SIGNS: Blood pressure is 196/102, pulse of 86, respirations of 18, temperature 98.2 degrees Fahrenheit, and O2 saturation 98% on room air. GENERAL: The patient is a very unfortunate gentleman, comfortable, in no apparent respiratory distress. HEENT: Normocephalic and atraumatic. Bilateral eyes, legally blind. NECK: No carotid bruit. Upstroke is 2+ bilaterally. CARDIOVASCULAR: Normal S1 and S2. Regular rate and rhythm. There is a 3/6 ejection systolic murmur best heard at the apex getting over the right sternal border at second intercostal space with Valsalva maneuver. The intensity of the murmur is diminished. LUNGS: Clear to auscultation bilaterally. ABDOMEN: Soft, nontender, and nondistended. No hepatosplenomegaly. Positive bowel sounds. EXTREMITIES: No evidence of edema, clubbing, or cyanosis. LABORATORY DATA: WBC 12.7, hemoglobin 14.0, hematocrit of 42.1, and platelet count is 100,000. Sodium 144, potassium is 4.0, chloride 96, bicarbonate 35, BUN of 16, creatinine 3.1, glucose is 127, and calcium is 11.3. ASSESSMENT AND PLAN: 1. Accelerated hypertension. The patient will require to be on dual anti- hypertensive medication in view of hypertension, stage III. 2D echocardiography has been ordered. We will continue with tamsulosin at this time. We may have to add a small dose of diuretic or calcium channel karen. 2. Hx of glaucoma 3. CKD Sai Khalil M.D. DR: Naveed JOB#: [id number] CC: RON
--- NOTE | 2017-03-15 06:41 | Anethesia Preoperative Eval ---
Anesthesia Pre-op PMH/ROS General Date of Evaluation: Mar 15, 2017 Time of Evaluation: 06:40 Anesthesiologist: felicity ASA Score: ASA 3 Mallampati Score Class I : Soft palate, uvula, fauces, pillars visible Class II: Soft palate, uvula, fauces visible Class III: Soft palate, base of uvula visible Class IV: Only hard plate visible Allergies: Coded Allergies: NO KNOWN ALLERGIES (Unverified Allergy, Unknown, 03/31/15) Anesthesia Pre-op Phys. Exam Physician Exam Last Vital Signs Date Time Temp Pulse Resp B/P Pulse Ox O2 Delivery O2 Flow Rate FiO2 03/15/17 04:00 98.4 74 18 159/80 97 Room Air JONES ASKEW Mar 15, 2017 06:41
[2017-03-15 07:36] VITALS: BP 153/78
[2017-03-15 08:22] LABS: MEAN CORPUSCULAR HEMOGLOBIN 30.7 PG (27.0-31.0); MEAN CORPUSCULAR HGB CONC 34.1 G/DL (32.0-36.0); MEAN CORPUSCULAR VOLUME 90 FL (80-99); MEAN PLATELET VOLUME 11.3 FL (6.5-10.1); PLATELET COUNT 92 K/UL (150-450); RED BLOOD COUNT 3.58 M/UL (4.70-6.10); RED CELL DISTRIBUTION WIDTH 12.1 % (11.6-14.8); WHITE BLOOD COUNT 7.7 K/UL (4.8-10.8)
[2017-03-15 08:33] LABS: PROTHROMBIN TIME 10.9 SEC (9.30-11.50)
--- NOTE | 2017-03-15 08:39 | Pulmonology Progress Note ---
Assessment/Plan Assessment/Plan ASSESSMENT sepsis bilateral hydronephrosis urinary retention 2 to markedly enlarged prostate markedly enlarged prostate, probably BPH ARF on CKD likely 2 to chronic bladder outlet obstruction abdominal pain possible mild colitis UTI acute DVT RLE PCFV mild anemia PLAN OF CARE MS floor IVF declined EGD this am urology followed fror hematuria Flomax and Proscar added keep Hough in as per urology abx and fup with urology as outpatient ID follows stool cx pending, stool C dif negative abx renal US with echogenic kidneys c/w medical renal disease acute renal failure likely due to chronic bladder outlet obstruction pain management bowel regimen GI follows monitor HH , transfuse prn with goal to keep Hgb above 7 check stool OB PPI Venous Duplex revealed acute nonocclusive thrombus RLE PCFV heme eval appreciated IVC filter for now BP management case discussed and evaluated by supervising physician Subjective Allergies: Coded Allergies: NO KNOWN ALLERGIES (Unverified Allergy, Unknown, 03/31/15) Subjective afebrile, no leucocytosis on RA pulse oximetry stable declined EGD less hematuria, but still blood tinged urine Objective Last 24 Hour Vital Signs Date Time Temp Pulse Resp B/P Pulse Ox O2 Delivery O2 Flow Rate FiO2 03/15/17 07:36 98.2 78 19 153/78 98 Room Air 03/15/17 04:00 98.4 74 18 159/80 97 Room Air 03/15/17 00:00 99.5 82 18 169/95 98 Room Air 03/14/17 19:55 97.7 74 20 155/79 99 Room Air 03/14/17 16:00 98.2 80 20 141/71 97 Room Air 03/14/17 11:40 98.6 80 20 136/71 99 Room Air Intake and Output 03/14/17 03/15/17 19:00 07:00 Intake Total 1820 ml 1850 ml Output Total 1150 ml 1600 ml Balance 670 ml 250 ml Intake Oral 570 ml 500 ml IV Total 1250 ml 1350 ml Output Urine Total 1150 ml 1600 ml # Bowel Movements 1 1 General Appearance: no acute distress HEENT: normocephalic, atraumatic, anicteric, other - legally blind bilaterally Respiratory/Chest: lungs clear, no respiratory distress, no accessory muscle use Cardiovascular: normal peripheral pulses, normal rate, regular rhythm, no JVD Abdomen: normal bowel sounds, soft, non tender, non distended Genitourinary: other - Hough with blood tinged urine Extremities: no edema, pedal pulses normal Neurologic/Psychiatric: abnormal gait, alert, oriented x 3, responsive Musculoskeletal: normal muscle bulk Microbiology Date/Time Source Procedure Growth Status 03/13/17 17:53 Blood Blood Culture - Preliminary NO GROWTH AFTER 24 HOURS Resulted 03/13/17 17:40 Blood Blood Culture - Preliminary NO GROWTH AFTER 24 HOURS Resulted 03/13/17 20:05 Stool Stool Culture Pending Resulted 03/13/17 20:05 Stool Clostridium difficile Toxin Assay - Final Resulted 03/13/17 23:00 Indwelling Cath Urine Culture - Preliminary NO GROWTH AFTER 24 HOURS Resulted Laboratory Tests 03/14/17 13:00: Urine Random Creatinine [Pending], Urine Random Microalbumin [Pending], Urine Random Total Protein 182, Urine Creatinine 152.9, Urine Microalbumin/Creatinine Ratio [Pending] 03/15/17 07:45: White Blood Count 7.7, Red Blood Count 3.58L, Hemoglobin 11.0L, Hematocrit 32.3L , Mean Corpuscular Volume 90, Mean Corpuscular Hemoglobin 30.7, Mean Corpuscular Hemoglobin Concent 34.1, Red Cell Distribution Width 12.1, Platelet Count 92L, Mean Platelet Volume 11.3H, Neutrophils (%) (Auto) , Lymphocytes (%) (Auto) , Monocytes (%) (Auto) , Eosinophils (%) (Auto) , Basophils (%) (Auto) , Neutrophils % (Manual) [Pending], Lymphocytes % (Manual) [Pending], Platelet Estimate [Pending], Platelet Morphology [Pending], Reticulocyte Count [Pending] , Prothrombin Time [Pending], Prothromb Time International Ratio [Pending], Activated Partial Thromboplast Time [Pending], Sodium Level [Pending], Potassium Level [Pending], Chloride Level [Pending], Carbon Dioxide Level [ Pending], Blood Urea Nitrogen [Pending], Creatinine [Pending], Estimat Glomerular Filtration Rate [Pending], Glucose Level [Pending], Calcium Level [ Pending], Iron Level [Pending], Unsaturated Iron Binding [Pending], Ferritin [ Pending], Carcinoembryonic Antigen [Pending], Vitamin B12 Level [Pending], Folate [Pending], Thyroid Stimulating Hormone (TSH) [Pending], Free Thyroxine [ Pending] Current Medications Medications (Trade) Dose Ordered Sig/Dexter Route PRN Reason Start Time Stop Time Status Last Admin Dose Admin Acetaminophen (Tylenol) 650 mg Q4H PRN ORAL fever 03/13/17 16:00 04/12/17 15:59 Al Hydroxide/Mg Hydroxide (Mylanta II) 30 ml Q6H PRN ORAL dyspepsia 03/13/17 16:00 04/12/17 15:59 Cefepime HCl/ Dextrose (Maxipime/D5W) 55 ml @ 110 mls/hr Q24H IVPB 03/14/17 18:00 03/21/17 17:59 03/14/17 17:55 Dextrose STAT PRN IV Hypoglycemia 03/13/17 16:00 04/12/17 15:59 Esomeprazole Sodium (Nexium I.v.) 40 mg DAILY IVP 03/15/17 09:00 04/14/17 08:59 Finasteride (Proscar) 5 mg DAILY ORAL 03/14/17 09:00 04/13/17 08:59 03/14/17 09:02 Lorazepam (Ativan 2mg/ml 1ml) 0.5 mg Q4H PRN IV For Anxiety 03/13/17 16:00 03/20/17 15:59 Metronidazole (Flagyl) 100 ml @ 100 mls/hr Q8H IVPB 03/13/17 18:00 03/20/17 17:59 03/15/17 01:42 Morphine Sulfate (Morphine Sulfate) 1 mg Q4H PRN IVP For Pain 4-10 03/13/17 16:00 03/20/17 15:59 03/13/17 22:40 Ondansetron HCl (Zofran) 4 mg Q6H PRN IVP Nausea & Vomiting 03/13/17 16:00 04/12/17 15:59 Polyethylene Glycol (Miralax) 17 gm HSPRN PRN ORAL Constipation 03/13/17 16:00 04/12/17 15:59 Sodium Chloride 1,000 ml @ 125 mls/hr Q8H IV 03/13/17 10:30 04/12/17 10:29 03/15/17 02:42 Tamsulosin HCl (Flomax) 0.4 mg BEDTIME ORAL 03/14/17 21:00 04/13/17 20:59 03/14/17 21:03 Zolpidem Tartrate (Ambien) 5 mg HSPRN PRN ORAL Insomnia 03/13/17 16:00 04/12/17 15:59 Eduard ([facility])Dasia NP Mar 15, 2017 08:39
[2017-03-15 08:41] LABS: ANION GAP 8 (5-15); CALCIUM 8.1 mg/dL (8.6-10.2); CARBON DIOXIDE 29 mEQ/L (20-30); CHLORIDE 104 mEQ/L (98-107); CREATININE 1.5 mg/dL (0.7-1.2); HEMOLYSIS 4; POTASSIUM 3.4 mEQ/L (3.4-4.9); SODIUM 141 mEQ/L (135-145)
[2017-03-15 08:53] LABS: FERRITIN 248 ng/mL (10-230)
[2017-03-15] MEDS ORDERED: Esomeprazole sodium 40mg vial IVP SCH (09:00)
[2017-03-15 09:49] LABS: EOSINOPHILS % (MANUAL) 3 % (0-3); LYMPHOCYTES % (MANUAL) 15 % (20-45); NEUTROPHILS % (MANUAL) 76 % (45-75); TOTAL CELLS COUNTED 100
[2017-03-15 09:50] LABS: BAND NEUTROPHILS % (MANUAL) 0 % (0-8); BASOPHILS % (MANUAL) 0 % (0-2); HYPOCHROMASIA 1+; PLATELET ESTIMATE DECREASED; PLATELET MORPHOLOGY NORMAL
[2017-03-15 09:51] LABS: MICROCYTES 1+; STOMATOCYTES 1+
[2017-03-15 09:52] LABS: ACANTHOCYTES 1+
--- NOTE | 2017-03-15 10:49 | GI Progress Note ---
Assessment/Plan Problems: (1) GERD (gastroesophageal reflux disease) ICD Codes: K21.9 - Gastro-esophageal reflux disease without esophagitis SNOMED: 783482528 (2) Anemia ICD Codes: D64.9 - Anemia, unspecified SNOMED: 824696534 (3) Enlarged prostate ICD Codes: N40.0 - Benign prostatic hyperplasia without lower urinary tract symptoms SNOMED: 029899974 (4) Abdominal pain ICD Codes: R10.9 - Unspecified abdominal pain SNOMED: 28562167 (5) Constipation ICD Codes: K59.00 - Constipation, unspecified SNOMED: 23820584 Status: stable Status Narrative Discussed with Dr. Davidson. Assessment/Plan CT AP reviewed >> Mildly dilated contrast-filled esophagus could indicate gastroesophageal reflux. cdiff negative EGD refused by patient, can be done as outpatient OB stool r/o GI bleed monitor H&H, transfuse prn pain mgmt bowel regime ppi fu labs Subjective Subjective abdominal pain improved Objective Last 24 Hour Vital Signs Date Time Temp Pulse Resp B/P Pulse Ox O2 Delivery O2 Flow Rate FiO2 03/15/17 07:36 98.2 78 19 153/78 98 Room Air 03/15/17 04:00 98.4 74 18 159/80 97 Room Air 03/15/17 00:00 99.5 82 18 169/95 98 Room Air 03/14/17 19:55 97.7 74 20 155/79 99 Room Air 03/14/17 16:00 98.2 80 20 141/71 97 Room Air 03/14/17 11:40 98.6 80 20 136/71 99 Room Air Intake and Output 03/14/17 03/15/17 19:00 07:00 Intake Total 1820 ml 1850 ml Output Total 1150 ml 1600 ml Balance 670 ml 250 ml Intake Oral 570 ml 500 ml IV Total 1250 ml 1350 ml Output Urine Total 1150 ml 1600 ml # Bowel Movements 1 1 Laboratory Tests Test 03/14/17 13:00 03/15/17 07:45 Urine Random Creatinine Pending Urine Random Microalbumin Pending Urine Random Total Protein 182 mg/dL Urine Creatinine 152.9 mg/dL Urine Microalbumin/Creatinine Ratio Pending White Blood Count 7.7 K/UL (4.8-10.8) Red Blood Count 3.58 M/UL (4.70-6.10) L Hemoglobin 11.0 G/DL (14.2-18.0) L Hematocrit 32.3 % (42.0-52.0) L Mean Corpuscular Volume 90 FL (80-99) Mean Corpuscular Hemoglobin 30.7 PG (27.0-31.0) Mean Corpuscular Hemoglobin Concent 34.1 G/DL (32.0-36.0) Red Cell Distribution Width 12.1 % (11.6-14.8) Platelet Count 92 K/UL (150-450) L Mean Platelet Volume 11.3 FL (6.5-10.1) H Neutrophils (%) (Auto) % (45.0-75.0) Lymphocytes (%) (Auto) % (20.0-45.0) Monocytes (%) (Auto) % (1.0-10.0) Eosinophils (%) (Auto) % (0.0-3.0) Basophils (%) (Auto) % (0.0-2.0) Differential Total Cells Counted 100 Neutrophils % (Manual) 76 % (45-75) H Lymphocytes % (Manual) 15 % (20-45) L Monocytes % (Manual) 6 % (1-10) Eosinophils % (Manual) 3 % (0-3) Basophils % (Manual) 0 % (0-2) Band Neutrophils 0 % (0-8) Platelet Estimate Decreased L Platelet Morphology Normal Hypochromasia 1+ Microcytosis 1+ Stomatocytes 1+ Acanthocytes 1+ Rouleau Reticulocyte Count 0.4 % (0.0-2.0) Prothrombin Time 10.9 SEC (9.30-11.50) Prothromb Time International Ratio 1.0 (0.9-1.1) Activated Partial Thromboplast Time 29 SEC (23-33) Sodium Level 141 mEQ/L (135-145) Potassium Level 3.4 mEQ/L (3.4-4.9) Chloride Level 104 mEQ/L (98-107) Carbon Dioxide Level 29 mEQ/L (20-30) Anion Gap 8 (5-15) Blood Urea Nitrogen 14 mg/dL (7-23) Creatinine 1.5 mg/dL (0.7-1.2) #H Estimat Glomerular Filtration Rate mL/min (>60) Glucose Level 156 mg/dL (74-106) H Calcium Level 8.1 mg/dL (8.6-10.2) L Iron Level 50 ug/dL (59-158) L Total Iron Binding Capacity 167 ug/dL (250-400) L Percent Iron Saturation 30 % (15-50) Unsaturated Iron Binding 117 ug/dL (112-346) Ferritin 248 ng/mL (10-230) H Carcinoembryonic Antigen 1.1 ng/mL Vitamin B12 Level 363 pg/mL (211-946) Folate Pending Thyroid Stimulating Hormone (TSH) 1.720 uIU/mL (0.300-4.500) Free Thyroxine 1.04 ng/dL (0.86-1.85) Height (Feet): 5 Height (Inches): 5.00 Weight (Pounds): 125 General Appearance: no apparent distress, alert Cardiovascular: normal rate Respiratory/Chest: normal breath sounds, no respiratory distress Abdominal Exam: normal bowel sounds, non tender, soft Sosa Rodriguez N.P. Mar 15, 2017 10:49
[2017-03-15 11:40] VITALS: BP 143/88
[2017-03-15] MEDS ORDERED: Tubing IV Secondary IV ONE (11:53)
[2017-03-15] MEDS ORDERED: NS 550ML IV ONE (11:53)
--- NOTE | 2017-03-15 14:38 | General Progress Note ---
Assessment/Plan Problem List: (1) UTI (urinary tract infection) ICD Codes: N39.0 - Urinary tract infection, site not specified SNOMED: 45153444 (2) Sepsis ICD Codes: A41.9 - Sepsis, unspecified organism SNOMED: 64141350 (3) Abdominal pain ICD Codes: R10.9 - Unspecified abdominal pain SNOMED: 98179938 (4) KELIN (acute kidney injury) ICD Codes: N17.9 - Acute kidney failure, unspecified SNOMED: 55429036 (5) Enlarged prostate ICD Codes: N40.0 - Benign prostatic hyperplasia without lower urinary tract symptoms SNOMED: 328517998 Status: stable, progressing, tolerating diet Assessment/Plan ot pt diet abx dc w hh if clear Subjective Constitutional: Reports: weakness Allergies: Coded Allergies: NO KNOWN ALLERGIES (Unverified Allergy, Unknown, 03/31/15) All Systems: reviewed and negative except above Subjective pos bm Objective Last 24 Hour Vital Signs Date Time Temp Pulse Resp B/P Pulse Ox O2 Delivery O2 Flow Rate FiO2 03/15/17 11:40 98.0 74 18 143/88 99 Room Air 03/15/17 07:36 98.2 78 19 153/78 98 Room Air 03/15/17 04:00 98.4 74 18 159/80 97 Room Air 03/15/17 00:00 99.5 82 18 169/95 98 Room Air 03/14/17 19:55 97.7 74 20 155/79 99 Room Air 03/14/17 16:00 98.2 80 20 141/71 97 Room Air Intake and Output 03/14/17 03/15/17 19:00 07:00 Intake Total 1820 ml 1850 ml Output Total 1150 ml 1600 ml Balance 670 ml 250 ml Intake Oral 570 ml 500 ml IV Total 1250 ml 1350 ml Output Urine Total 1150 ml 1600 ml # Bowel Movements 1 1 Laboratory Tests 03/15/17 07:45: White Blood Count 7.7, Red Blood Count 3.58L, Hemoglobin 11.0L, Hematocrit 32.3L , Mean Corpuscular Volume 90, Mean Corpuscular Hemoglobin 30.7, Mean Corpuscular Hemoglobin Concent 34.1, Red Cell Distribution Width 12.1, Platelet Count 92L, Mean Platelet Volume 11.3H, Neutrophils (%) (Auto) , Lymphocytes (%) (Auto) , Monocytes (%) (Auto) , Eosinophils (%) (Auto) , Basophils (%) (Auto) , Differential Total Cells Counted 100, Neutrophils % (Manual) 76H, Lymphocytes % (Manual) 15L, Monocytes % (Manual) 6, Eosinophils % (Manual) 3, Basophils % ( Manual) 0, Band Neutrophils 0, Platelet Estimate DecreasedL, Platelet Morphology Normal, Hypochromasia 1+, Microcytosis 1+, Stomatocytes 1+, Acanthocytes 1+, Rouleau , Reticulocyte Count 0.4, Prothrombin Time 10.9, Prothromb Time International Ratio 1.0, Activated Partial Thromboplast Time 29, Sodium Level 141, Potassium Level 3.4, Chloride Level 104, Carbon Dioxide Level 29, Anion Gap 8, Blood Urea Nitrogen 14, Creatinine 1.5#H, Estimat Glomerular Filtration Rate , Glucose Level 156H, Calcium Level 8.1L, Iron Level 50L, Total Iron Binding Capacity 167L, Percent Iron Saturation 30, Unsaturated Iron Binding 117, Ferritin 248H, Carcinoembryonic Antigen 1.1, Vitamin B12 Level 363 , Folate [Pending], Thyroid Stimulating Hormone (TSH) 1.720, Free Thyroxine 1.04 Height (Feet): 5 Height (Inches): 5.00 Weight (Pounds): 125 General Appearance: alert EENT: normal ENT inspection Neck: normal alignment Cardiovascular: normal peripheral pulses, normal rate, regular rhythm Respiratory/Chest: chest wall non-tender, lungs clear, normal breath sounds Abdomen: normal bowel sounds, non tender, soft Extremities: normal inspection Edema: no edema noted Arm (L), no edema noted Arm (R), no edema noted Leg (L), no edema noted Leg (R), no edema noted Pedal (L), no edema noted Pedal (R), no edema noted Generalized Neurologic: responsive, motor weakness Skin: normal pigmentation, warm/dry KEN CANTOR Mar 15, 2017 14:38
--- NOTE | 2017-03-15 15:18 | Nephrology Progress Note ---
Assessment/Plan Assessment 1. Acute renal failure, 2. Hypocalcemia. 3. Hematuria. 4.obstructive uropathy Plan plan to continue current iv monitoring renal function avoid NSAID replace electrolyte Subjective Genitourinary: Reports: hematuria Subjective alert and wake no complaints Objective Objective Last 24 Hour Vital Signs Date Time Temp Pulse Resp B/P Pulse Ox O2 Delivery O2 Flow Rate FiO2 03/15/17 11:40 98.0 74 18 143/88 99 Room Air 03/15/17 07:36 98.2 78 19 153/78 98 Room Air 03/15/17 04:00 98.4 74 18 159/80 97 Room Air 03/15/17 00:00 99.5 82 18 169/95 98 Room Air 03/14/17 19:55 97.7 74 20 155/79 99 Room Air 03/14/17 16:00 98.2 80 20 141/71 97 Room Air Intake and Output 03/14/17 03/15/17 19:00 07:00 Intake Total 1820 ml 1850 ml Output Total 1150 ml 1600 ml Balance 670 ml 250 ml Intake Oral 570 ml 500 ml IV Total 1250 ml 1350 ml Output Urine Total 1150 ml 1600 ml # Bowel Movements 1 1 Laboratory Tests 03/15/17 07:45: White Blood Count 7.7, Red Blood Count 3.58L, Hemoglobin 11.0L, Hematocrit 32.3L , Mean Corpuscular Volume 90, Mean Corpuscular Hemoglobin 30.7, Mean Corpuscular Hemoglobin Concent 34.1, Red Cell Distribution Width 12.1, Platelet Count 92L, Mean Platelet Volume 11.3H, Neutrophils (%) (Auto) , Lymphocytes (%) (Auto) , Monocytes (%) (Auto) , Eosinophils (%) (Auto) , Basophils (%) (Auto) , Differential Total Cells Counted 100, Neutrophils % (Manual) 76H, Lymphocytes % (Manual) 15L, Monocytes % (Manual) 6, Eosinophils % (Manual) 3, Basophils % ( Manual) 0, Band Neutrophils 0, Platelet Estimate DecreasedL, Platelet Morphology Normal, Hypochromasia 1+, Microcytosis 1+, Stomatocytes 1+, Acanthocytes 1+, Rouleau , Reticulocyte Count 0.4, Prothrombin Time 10.9, Prothromb Time International Ratio 1.0, Activated Partial Thromboplast Time 29, Sodium Level 141, Potassium Level 3.4, Chloride Level 104, Carbon Dioxide Level 29, Anion Gap 8, Blood Urea Nitrogen 14, Creatinine 1.5#H, Estimat Glomerular Filtration Rate , Glucose Level 156H, Calcium Level 8.1L, Iron Level 50L, Total Iron Binding Capacity 167L, Percent Iron Saturation 30, Unsaturated Iron Binding 117, Ferritin 248H, Carcinoembryonic Antigen 1.1, Vitamin B12 Level 363 , Folate [Pending], Thyroid Stimulating Hormone (TSH) 1.720, Free Thyroxine 1.04 Height (Feet): 5 Height (Inches): 5.00 Weight (Pounds): 125 Objective HEAD AND NECK: No JVP. No LAD. No thyromegaly. Extraocular movement intact. Pupils are reactive to light and accommodation. LUNGS: Clear to auscultation. CARDIAC: Regular rate and rhythm. S1 and S2. No murmur. No rub. ABDOMEN: Soft, nontender, and nondistended. EXTREMITIES: No edema. No clubbing. No cyanosis. NEUROLOGIC: Cranial nerves II to XII within normal limits. Upper and lower extremities are grossly intact. ORIANA MEJIA Mar 15, 2017 15:18
[2017-03-15 16:00] VITALS: BP 169/85
--- NOTE | 2017-03-15 17:16 | Infectious Diseases Prog Note ---
Assessment/Plan Problems: (1) UTI (urinary tract infection) Assessment & Plan: suspect due to obstructive uropathy , await urine culture and continue cefepime empirically. (2) Colitis, acute Assessment & Plan: improved, with negative stool for C diff . on cefepime , will stop metronidazole empirically (3) Sepsis Assessment & Plan: due to the above will send blood culture and start cefepime empirically (4) Enlarged prostate Assessment & Plan: recommend urology eval , and renal US (5) KELIN (acute kidney injury) Assessment & Plan: suspect due to obstructive uropathy , recommend urology eval , espinoza cath, monitor UOP, and renal consult (6) Abdominal pain Assessment & Plan: improved , due to the above, continue pain management as per the primary team Subjective Constitutional: Reports: no symptoms HEENT: Reports: no symptoms Respiratory: Reports: no symptoms Breasts: Reports: no symptoms Cardiovascular: Reports: no symptoms Gastrointestinal/Abdominal: Reports: no symptoms Genitourinary: Reports: no symptoms Neurologic: Reports: no symptoms Psychiatric: Reports: no symptoms Skin: Reports: no symptoms Allergies: Coded Allergies: NO KNOWN ALLERGIES (Unverified Allergy, Unknown, 03/31/15) Objective Vital Signs Last 24 Hour Vital Signs Date Time Temp Pulse Resp B/P Pulse Ox O2 Delivery O2 Flow Rate FiO2 03/15/17 16:00 98.3 72 20 169/85 99 Room Air 03/15/17 11:40 98.0 74 18 143/88 99 Room Air 03/15/17 07:36 98.2 78 19 153/78 98 Room Air 03/15/17 04:00 98.4 74 18 159/80 97 Room Air 03/15/17 00:00 99.5 82 18 169/95 98 Room Air 03/14/17 19:55 97.7 74 20 155/79 99 Room Air Height (Feet): 5 Height (Inches): 5.00 Weight (Pounds): 125 General Appearance: WD/WN, no acute distress HEENT: normocephalic, atraumatic, anicteric, mucous membranes moist, PERRL, EOMI, pharynx normal, supple, no JVD Respiratory/Chest: chest wall non-tender, lungs clear, normal breath sounds, no respiratory distress, no accessory muscle use Cardiovascular: normal peripheral pulses, normal rate, regular rhythm, no gallop/murmur, no JVD Abdomen: normal bowel sounds, soft, non tender, no organomegaly, non distended , no mass, no scars Genitourinary: normal external genitalia Extremities: no cyanosis, no clubbing Skin: no rash, no lesions, no ulcers Neurologic/Psychiatric: alert, oriented x 3, responsive Lymphatic: no neck adenopathy, no groin adenopathy Microbiology Date/Time Source Procedure Growth Status 03/13/17 17:53 Blood Blood Culture - Preliminary NO GROWTH AFTER 24 HOURS Resulted 03/13/17 17:40 Blood Blood Culture - Preliminary NO GROWTH AFTER 24 HOURS Resulted 03/13/17 20:05 Stool Stool Culture - Preliminary NORMAL FECAL CHANA. Resulted 03/13/17 20:05 Stool Clostridium difficile Toxin Assay - Final Resulted 03/13/17 23:00 Indwelling Cath Urine Culture - Preliminary NO GROWTH AFTER 24 HOURS Resulted Laboratory Tests Test 03/15/17 07:45 White Blood Count 7.7 K/UL (4.8-10.8) Red Blood Count 3.58 M/UL (4.70-6.10) L Hemoglobin 11.0 G/DL (14.2-18.0) L Hematocrit 32.3 % (42.0-52.0) L Mean Corpuscular Volume 90 FL (80-99) Mean Corpuscular Hemoglobin 30.7 PG (27.0-31.0) Mean Corpuscular Hemoglobin Concent 34.1 G/DL (32.0-36.0) Red Cell Distribution Width 12.1 % (11.6-14.8) Platelet Count 92 K/UL (150-450) L Mean Platelet Volume 11.3 FL (6.5-10.1) H Neutrophils (%) (Auto) % (45.0-75.0) Lymphocytes (%) (Auto) % (20.0-45.0) Monocytes (%) (Auto) % (1.0-10.0) Eosinophils (%) (Auto) % (0.0-3.0) Basophils (%) (Auto) % (0.0-2.0) Differential Total Cells Counted 100 Neutrophils % (Manual) 76 % (45-75) H Lymphocytes % (Manual) 15 % (20-45) L Monocytes % (Manual) 6 % (1-10) Eosinophils % (Manual) 3 % (0-3) Basophils % (Manual) 0 % (0-2) Band Neutrophils 0 % (0-8) Platelet Estimate Decreased L Platelet Morphology Normal Hypochromasia 1+ Microcytosis 1+ Stomatocytes 1+ Acanthocytes 1+ Rouleau Reticulocyte Count 0.4 % (0.0-2.0) Prothrombin Time 10.9 SEC (9.30-11.50) Prothromb Time International Ratio 1.0 (0.9-1.1) Activated Partial Thromboplast Time 29 SEC (23-33) Sodium Level 141 mEQ/L (135-145) Potassium Level 3.4 mEQ/L (3.4-4.9) Chloride Level 104 mEQ/L (98-107) Carbon Dioxide Level 29 mEQ/L (20-30) Anion Gap 8 (5-15) Blood Urea Nitrogen 14 mg/dL (7-23) Creatinine 1.5 mg/dL (0.7-1.2) #H Estimat Glomerular Filtration Rate mL/min (>60) Glucose Level 156 mg/dL (74-106) H Calcium Level 8.1 mg/dL (8.6-10.2) L Iron Level 50 ug/dL (59-158) L Total Iron Binding Capacity 167 ug/dL (250-400) L Percent Iron Saturation 30 % (15-50) Unsaturated Iron Binding 117 ug/dL (112-346) Ferritin 248 ng/mL (10-230) H Carcinoembryonic Antigen 1.1 ng/mL Vitamin B12 Level 363 pg/mL (211-946) Folate Pending Thyroid Stimulating Hormone (TSH) 1.720 uIU/mL (0.300-4.500) Free Thyroxine 1.04 ng/dL (0.86-1.85) Current Medications Medications (Trade) Dose Ordered Sig/Dexter Route PRN Reason Start Time Stop Time Status Last Admin Dose Admin Acetaminophen (Tylenol) 650 mg Q4H PRN ORAL fever 03/13/17 16:00 04/12/17 15:59 Al Hydroxide/Mg Hydroxide (Mylanta II) 30 ml Q6H PRN ORAL dyspepsia 03/13/17 16:00 04/12/17 15:59 Cefepime HCl/ Dextrose (Maxipime/D5W) 55 ml @ 110 mls/hr Q24H IVPB 03/14/17 18:00 03/21/17 17:59 03/14/17 17:55 Dextrose STAT PRN IV Hypoglycemia 03/13/17 16:00 04/12/17 15:59 Finasteride (Proscar) 5 mg DAILY ORAL 03/14/17 09:00 04/13/17 08:59 03/15/17 09:21 Lorazepam (Ativan 2mg/ml 1ml) 0.5 mg Q4H PRN IV For Anxiety 03/13/17 16:00 03/20/17 15:59 Metronidazole (Flagyl) 100 ml @ 100 mls/hr Q8H IVPB 03/13/17 18:00 03/20/17 17:59 03/15/17 09:21 Morphine Sulfate (Morphine Sulfate) 1 mg Q4H PRN IVP For Pain 4-10 03/13/17 16:00 03/20/17 15:59 03/13/17 22:40 Ondansetron HCl (Zofran) 4 mg Q6H PRN IVP Nausea & Vomiting 03/13/17 16:00 04/12/17 15:59 Pantoprazole (Protonix) 40 mg DAILY ORAL 03/16/17 09:00 04/15/17 08:59 Polyethylene Glycol (Miralax) 17 gm HSPRN PRN ORAL Constipation 03/13/17 16:00 04/12/17 15:59 Sodium Chloride 1,000 ml @ 125 mls/hr Q8H IV 03/13/17 10:30 04/12/17 10:29 03/15/17 02:42 Tamsulosin HCl (Flomax) 0.4 mg BEDTIME ORAL 03/14/17 21:00 04/13/17 20:59 03/14/17 21:03 Zolpidem Tartrate (Ambien) 5 mg HSPRN PRN ORAL Insomnia 03/13/17 16:00 04/12/17 15:59 Philip Jensen M.D. Mar 15, 2017 17:16
[2017-03-15] MEDS: Cefepime 500mg in D5W 55ml IVPB SCH (17:26)
[2017-03-15 20:00] VITALS: BP 185/93
[2017-03-15] MEDS: Tamsulosin 0.4mg cap ORAL SCH (20:22)
--- NOTE | 2017-03-15 23:28 | Cardiology Progress Note ---
Assessment/Plan Assessment/Plan 1. Accelerated HTN, start cardizem 30mg po tid in addition to alpha blockers. 2. KELIN, there is remarkable decrease in the creat level. 3. Glaucoma, legally blind 4. Hematuria. Subjective Subjective Sinus rhythm at 72. Denies chest pain or SOB. Objective Last 24 Hour Vital Signs Date Time Temp Pulse Resp B/P Pulse Ox O2 Delivery O2 Flow Rate FiO2 03/15/17 21:26 185/93 03/15/17 20:00 98.8 72 18 185/93 99 Room Air 03/15/17 16:00 98.3 72 20 169/85 99 Room Air 03/15/17 11:40 98.0 74 18 143/88 99 Room Air 03/15/17 07:36 98.2 78 19 153/78 98 Room Air 03/15/17 04:00 98.4 74 18 159/80 97 Room Air 03/15/17 00:00 99.5 82 18 169/95 98 Room Air Intake and Output 03/14/17 03/15/17 19:00 07:00 Intake Total 1820 ml 1850 ml Output Total 1150 ml 1600 ml Balance 670 ml 250 ml Intake Oral 570 ml 500 ml IV Total 1250 ml 1350 ml Output Urine Total 1150 ml 1600 ml # Bowel Movements 1 1 2D Echo: LVEF 55%, Grade I LVDD, Mild LVH, Mild/Mod MR, small pericard. Eff, RVSP 38 Laboratory Tests Test 03/15/17 07:45 03/15/17 18:15 White Blood Count 7.7 K/UL (4.8-10.8) Red Blood Count 3.58 M/UL (4.70-6.10) L Hemoglobin 11.0 G/DL (14.2-18.0) L Hematocrit 32.3 % (42.0-52.0) L Mean Corpuscular Volume 90 FL (80-99) Mean Corpuscular Hemoglobin 30.7 PG (27.0-31.0) Mean Corpuscular Hemoglobin Concent 34.1 G/DL (32.0-36.0) Red Cell Distribution Width 12.1 % (11.6-14.8) Platelet Count 92 K/UL (150-450) L Mean Platelet Volume 11.3 FL (6.5-10.1) H Neutrophils (%) (Auto) % (45.0-75.0) Lymphocytes (%) (Auto) % (20.0-45.0) Monocytes (%) (Auto) % (1.0-10.0) Eosinophils (%) (Auto) % (0.0-3.0) Basophils (%) (Auto) % (0.0-2.0) Differential Total Cells Counted 100 Neutrophils % (Manual) 76 % (45-75) H Lymphocytes % (Manual) 15 % (20-45) L Monocytes % (Manual) 6 % (1-10) Eosinophils % (Manual) 3 % (0-3) Basophils % (Manual) 0 % (0-2) Band Neutrophils 0 % (0-8) Platelet Estimate Decreased L Platelet Morphology Normal Hypochromasia 1+ Microcytosis 1+ Stomatocytes 1+ Acanthocytes 1+ Rouleau Reticulocyte Count 0.4 % (0.0-2.0) Prothrombin Time 10.9 SEC (9.30-11.50) Prothromb Time International Ratio 1.0 (0.9-1.1) Activated Partial Thromboplast Time 29 SEC (23-33) Sodium Level 141 mEQ/L (135-145) Potassium Level 3.4 mEQ/L (3.4-4.9) Chloride Level 104 mEQ/L (98-107) Carbon Dioxide Level 29 mEQ/L (20-30) Anion Gap 8 (5-15) Blood Urea Nitrogen 14 mg/dL (7-23) Creatinine 1.5 mg/dL (0.7-1.2) #H Estimat Glomerular Filtration Rate mL/min (>60) Glucose Level 156 mg/dL (74-106) H Calcium Level 8.1 mg/dL (8.6-10.2) L Iron Level 50 ug/dL (59-158) L Total Iron Binding Capacity 167 ug/dL (250-400) L Percent Iron Saturation 30 % (15-50) Unsaturated Iron Binding 117 ug/dL (112-346) Ferritin 248 ng/mL (10-230) H Carcinoembryonic Antigen 1.1 ng/mL Vitamin B12 Level 363 pg/mL (211-946) Folate Pending Thyroid Stimulating Hormone (TSH) 1.720 uIU/mL (0.300-4.500) Free Thyroxine 1.04 ng/dL (0.86-1.85) Urine Random Creatinine Pending Urine Random Microalbumin Pending Urine Microalbumin/Creatinine Ratio Pending Microbiology Date/Time Source Procedure Growth Status 03/13/17 17:53 Blood Blood Culture - Preliminary NO GROWTH AFTER 24 HOURS Resulted 03/13/17 17:40 Blood Blood Culture - Preliminary NO GROWTH AFTER 24 HOURS Resulted 03/13/17 20:05 Stool Stool Culture - Preliminary NORMAL FECAL CHANA. Resulted 03/13/17 20:05 Stool Clostridium difficile Toxin Assay - Final Resulted 03/13/17 23:00 Indwelling Cath Urine Culture - Preliminary NO GROWTH AFTER 24 HOURS Resulted Objective GENERAL: The patient is a very unfortunate gentleman, comfortable, in no apparent respiratory distress. HEENT: Normocephalic and atraumatic. Bilateral eyes, legally blind. NECK: No carotid bruit. Upstroke is 2+ bilaterally. CARDIOVASCULAR: Normal S1 and S2. Regular rate and rhythm. There is a 3/6 ejection systolic murmur best heard at the apex getting over the right sternal border at second intercostal space with Valsalva maneuver. The intensity of the murmur is diminished. LUNGS: Clear to auscultation bilaterally. ABDOMEN: Soft, nontender, and nondistended. No hepatosplenomegaly. Positive bowel sounds. EXTREMITIES: No evidence of edema, clubbing, or cyanosis. LUL KO Mar 15, 2017 23:28
[2017-03-16] VITALS: BP 178/92
[2017-03-16 04:00] VITALS: BP 145/72
[2017-03-16] MEDS ORDERED: [UNRECOGNIZED DRUG - REMARK] (05:39)
[2017-03-16 08:00] VITALS: BP 138/67
--- NOTE | 2017-03-16 08:15 | General Progress Note ---
Assessment/Plan Problem List: (1) Dysphagia ICD Codes: R13.10 - Dysphagia, unspecified SNOMED: 13347302, 478755815 (2) Abdominal pain ICD Codes: R10.9 - Unspecified abdominal pain SNOMED: 85553634 (3) Enlarged prostate ICD Codes: N40.0 - Benign prostatic hyperplasia without lower urinary tract symptoms SNOMED: 748473835 (4) Colitis, acute ICD Codes: K52.9 - Noninfective gastroenteritis and colitis, unspecified SNOMED: 629167867 (5) Anemia ICD Codes: D64.9 - Anemia, unspecified SNOMED: 799983079 (6) GERD (gastroesophageal reflux disease) ICD Codes: K21.9 - Gastro-esophageal reflux disease without esophagitis SNOMED: 127010236 (7) Constipation ICD Codes: K59.00 - Constipation, unspecified SNOMED: 03624988 Assessment/Plan fu stool ob needs EGD and colonoscopy but patients wants to think about it fu labs laxatives Subjective ROS Limited/Unobtainable: Yes Allergies: Coded Allergies: NO KNOWN ALLERGIES (Unverified Allergy, Unknown, 03/31/15) Subjective no c/o wants espinoza cath out Objective Last 24 Hour Vital Signs Date Time Temp Pulse Resp B/P Pulse Ox O2 Delivery O2 Flow Rate FiO2 03/16/17 06:09 76 145/72 03/16/17 04:00 98.6 76 20 145/72 96 Room Air 03/16/17 00:00 98.8 70 18 178/92 98 Room Air 03/15/17 23:57 72 178/91 03/15/17 21:26 185/93 03/15/17 20:00 98.8 72 18 185/93 99 Room Air 03/15/17 16:00 98.3 72 20 169/85 99 Room Air 03/15/17 11:40 98.0 74 18 143/88 99 Room Air Intake and Output 03/15/17 03/16/17 19:00 07:00 Intake Total 1960 ml 1500 ml Output Total 1850 ml 1300 ml Balance 110 ml 200 ml Intake Oral 1280 ml IV Total 680 ml 1500 ml Output Urine Total 1850 ml 1300 ml # Bowel Movements 1 Laboratory Tests 03/15/17 18:15: Urine Random Creatinine [Pending], Urine Random Microalbumin [Pending], Urine Microalbumin/Creatinine Ratio [Pending] 03/16/17 06:44: White Blood Count [Pending], Red Blood Count [Pending], Hemoglobin [Pending], Hematocrit [Pending], Mean Corpuscular Volume [Pending], Mean Corpuscular Hemoglobin [Pending], Mean Corpuscular Hemoglobin Concent [Pending], Red Cell Distribution Width [Pending], Platelet Count [Pending], Mean Platelet Volume [ Pending], Neutrophils (%) (Auto) [Pending], Lymphocytes (%) (Auto) [Pending], Monocytes (%) (Auto) [Pending], Eosinophils (%) (Auto) [Pending], Basophils (%) (Auto) [Pending], Sodium Level [Pending], Potassium Level [Pending], Chloride Level [Pending], Carbon Dioxide Level [Pending], Blood Urea Nitrogen [Pending], Creatinine [Pending], Estimat Glomerular Filtration Rate [Pending], Glucose Level [Pending], Calcium Level [Pending], Phosphorus Level [Pending], Magnesium Level [Pending] Height (Feet): 5 Height (Inches): 5.00 Weight (Pounds): 125 General Appearance: alert EENT: normal ENT inspection Neck: normal alignment Cardiovascular: normal rate Respiratory/Chest: lungs clear Abdomen: normal bowel sounds, non tender, soft Extremities: non-tender SEVERINO WILLIAMSON Mar 16, 2017 08:15
[2017-03-16 08:30] LABS: MEAN CORPUSCULAR HEMOGLOBIN 30.3 PG (27.0-31.0); MEAN CORPUSCULAR HGB CONC 33.8 G/DL (32.0-36.0); MEAN CORPUSCULAR VOLUME 90 FL (80-99); MEAN PLATELET VOLUME 11.8 FL (6.5-10.1); PLATELET COUNT 87 K/UL (150-450); RED BLOOD COUNT 3.49 M/UL (4.70-6.10); RED CELL DISTRIBUTION WIDTH 12.3 % (11.6-14.8)
[2017-03-16 08:39] LABS: ANION GAP 10 (5-15); CALCIUM 7.9 mg/dL (8.6-10.2); CARBON DIOXIDE 25 mEQ/L (20-30); CHLORIDE 107 mEQ/L (98-107); CREATININE 1.3 mg/dL (0.7-1.2); HEMOLYSIS 4; MAGNESIUM 1.8 mg/dL (1.7-2.5); PHOSPHORUS 3.6 mg/dL (2.5-4.8); POTASSIUM 3.3 mEQ/L (3.4-4.9); SODIUM 142 mEQ/L (135-145)
--- NOTE | 2017-03-16 08:51 | General Progress Note ---
Assessment/Plan Problem List: (1) UTI (urinary tract infection) ICD Codes: N39.0 - Urinary tract infection, site not specified SNOMED: 67219775 (2) Sepsis ICD Codes: A41.9 - Sepsis, unspecified organism SNOMED: 56001812 (3) Abdominal pain ICD Codes: R10.9 - Unspecified abdominal pain SNOMED: 61485570 (4) KELIN (acute kidney injury) ICD Codes: N17.9 - Acute kidney failure, unspecified SNOMED: 91087806 (5) Enlarged prostate ICD Codes: N40.0 - Benign prostatic hyperplasia without lower urinary tract symptoms SNOMED: 057763068 Status: stable, progressing, tolerating diet Assessment/Plan ot pt diet abx cbc bmp am dc w hh if clear by gi Subjective Constitutional: Reports: weakness Allergies: Coded Allergies: NO KNOWN ALLERGIES (Unverified Allergy, Unknown, 03/31/15) All Systems: reviewed and negative except above Subjective calm in bed Objective Last 24 Hour Vital Signs Date Time Temp Pulse Resp B/P Pulse Ox O2 Delivery O2 Flow Rate FiO2 03/16/17 08:00 97.9 68 18 138/67 96 Room Air 03/16/17 06:09 76 145/72 03/16/17 04:00 98.6 76 20 145/72 96 Room Air 03/16/17 00:00 98.8 70 18 178/92 98 Room Air 03/15/17 23:57 72 178/91 03/15/17 21:26 185/93 03/15/17 20:00 98.8 72 18 185/93 99 Room Air 03/15/17 16:00 98.3 72 20 169/85 99 Room Air 03/15/17 11:40 98.0 74 18 143/88 99 Room Air Intake and Output 03/15/17 03/16/17 19:00 07:00 Intake Total 1960 ml 1500 ml Output Total 1850 ml 1300 ml Balance 110 ml 200 ml Intake Oral 1280 ml IV Total 680 ml 1500 ml Output Urine Total 1850 ml 1300 ml # Bowel Movements 1 Laboratory Tests 03/15/17 18:15: Urine Random Creatinine [Pending], Urine Random Microalbumin [Pending], Urine Microalbumin/Creatinine Ratio [Pending] 03/16/17 06:00: Stool Occult Blood [Pending] 03/16/17 06:44: White Blood Count 7.0, Red Blood Count 3.49L, Hemoglobin 10.6L, Hematocrit 31.3L , Mean Corpuscular Volume 90, Mean Corpuscular Hemoglobin 30.3, Mean Corpuscular Hemoglobin Concent 33.8, Red Cell Distribution Width 12.3, Platelet Count 87L, Mean Platelet Volume 11.8H, Neutrophils (%) (Auto) , Lymphocytes (%) (Auto) , Monocytes (%) (Auto) , Eosinophils (%) (Auto) , Basophils (%) (Auto) , Neutrophils % (Manual) [Pending], Lymphocytes % (Manual) [Pending], Platelet Estimate [Pending], Platelet Morphology [Pending], Sodium Level 142, Potassium Level 3.3L, Chloride Level 107, Carbon Dioxide Level 25, Anion Gap 10, Blood Urea Nitrogen 11, Creatinine 1.3H, Estimat Glomerular Filtration Rate , Glucose Level 92, Calcium Level 7.9L, Phosphorus Level 3.6, Magnesium Level 1.8 Height (Feet): 5 Height (Inches): 5.00 Weight (Pounds): 125 General Appearance: alert EENT: normal ENT inspection Neck: normal alignment Cardiovascular: normal peripheral pulses, normal rate, regular rhythm Respiratory/Chest: chest wall non-tender, lungs clear, normal breath sounds Abdomen: normal bowel sounds, non tender, soft Extremities: normal inspection Edema: no edema noted Arm (L), no edema noted Arm (R), no edema noted Leg (L), no edema noted Leg (R), no edema noted Pedal (L), no edema noted Pedal (R), no edema noted Generalized Neurologic: responsive, motor weakness Skin: normal pigmentation, warm/dry KEN CANTOR Mar 16, 2017 08:51
[2017-03-16] MEDS: Docusate 100mg cap ORAL SCH ×2 (09:07→18:00)
--- NOTE | 2017-03-16 09:45 | Consultation ---
DATE OF CONSULTATION: 03/15/2017 HEMATOLOGY/ONCOLOGY CONSULTATION CONSULTING PHYSICIAN: Aj Millan M.D. REQUESTING PHYSICIAN: Lucio Amezcua M.D. and Dasia MccloudKingsbrook Jewish Medical CenterRoque Denney REASON FOR CONSULTATION: Evaluation of acute DVT. IDENTIFICATION DATA: Dear Dr. Amezcua, The patient is a pleasant 71-year-old male with a past medical history significant for glaucoma, hypertension, and is legally blind, presents to the hospital with abdominal pain, straining with urination, constipation, noted to have an elevated blood pressure of 196/102. Cardiology service was consulted. CAT scan of the abdomen and pelvis showed "enlargement of bladder with hydronephrosis, hydroureter. The patient was seen by GI team, EGD refused. The patient had contrast with esophagus. In addition, the patient was noted to have an acute DVT of the right leg and Hematology service was consulted this morning and hold him on IVC filter given that this is nonocclusive clot and the patient's hemoglobin has been downtrending, however, a repeat ultrasound completed did not show any evidence of clot. PAST MEDICAL HISTORY: Glaucoma, hypertension, and legal blindness. PAST SURGICAL HISTORY: None. MEDICATIONS: Cipro twice a day. ALLERGIES: No known drug allergies. REVIEW OF SYSTEMS: Constitutional: No fever, chills, or night sweats. Skin: No rash, bumps, or itching. HEENT: No headache, hearing or vision changes. Breasts: No lumps, pain, or discharge. Pulmonary: No cough, sputum, or shortness of breath. Gastrointestinal: No nausea, vomiting, or diarrhea. Genitourinary: No dysuria, frequency, or urgency. Musculoskeletal: No joint swelling, muscle pain, or trauma. PHYSICAL EXAMINATION: GENERAL: The patient is in no acute distress. VITAL SIGNS: Blood pressure 196/102, pulse of 86, respiratory rate 12, and temperature of 98.6 degrees Fahrenheit. PULMONARY: Decreased breath sounds. CARDIOVASCULAR: Regular rhythm. No S3 or S4. ABDOMEN: Soft, nontender, and nondistended. EXTREMITIES: There is 1+ edema. LABORATORY DATA: WBC 7.7, hemoglobin 11, hematocrit 32, and platelet count 92,000, reticulocyte count 0.5. INR of 1. Chemistry was reviewed. BUN of 14 and creatinine of 1.5, which is significantly improved. ASSESSMENT AND PLAN: 1. Acute nonocclusive clot noted on prior imaging. I have again reviewed the imaging with solar fabrication technician, who completed the study on a second time did not join the clot , therefore, we will cancel the inferior vena cava filter given there was no more clotting done . 2. Thrombocytopenia. We will evaluate hepatitis at the time of his human immunodeficiency virus as well as ultrasound of the abdomen. 3. Anemia. 4. gastrointestinal bleed. The patient refusing esophagogastroduodenoscopy. 5. 6. acute kidney disease. Creatinine currently improving. 7. Leukocytosis, likely secondary to infection, has improved. Continue to monitor. 8. Hypertension, better controlled with Cariology service. 9. Glaucoma legally blind. 10. Hematuria with a downtrending hemoglobin and hematocrit. Continue to closely monitor. I greatly appreciate consultation. Aj Millan M.D. : JOEL JOB#: [id number] CC:
[2017-03-16 10:16] LABS: BAND NEUTROPHILS % (MANUAL) 0 % (0-8); BASOPHILS % (MANUAL) 0 % (0-2); EOSINOPHILS % (MANUAL) 5 % (0-3); LYMPHOCYTES % (MANUAL) 29 % (20-45); NEUTROPHILS % (MANUAL) 64 % (45-75); PLATELET ESTIMATE DECREASED; TOTAL CELLS COUNTED 100
[2017-03-16 10:17] LABS: PLATELET MORPHOLOGY NORMAL
--- NOTE | 2017-03-16 10:57 | Pulmonology Progress Note ---
Assessment/Plan Assessment/Plan ASSESSMENT sepsis bilateral hydronephrosis urinary retention 2 to markedly enlarged prostate markedly enlarged prostate, probably BPH ARF on CKD likely 2 to chronic bladder outlet obstruction abdominal pain possible mild colitis UTI mild anemia acute DVT RLE PCFV - not confirmed on second imaging PLAN OF CARE MS floor IVF declined EGD urology followed for hematuria Flomax and Proscar added keep Hough in as per urology hematuria resolved abx and fup with urology as outpatient ID follows stool cx pending, stool C dif negative abx renal US with echogenic kidneys c/w medical renal disease acute renal failure likely due to chronic bladder outlet obstruction creat trending down K replaced as per nephro pain management bowel regimen GI follows monitor HH , transfuse prn with goal to keep Hgb above 7 check stool OB PPI Venous Duplex revealed acute nonocclusive thrombus RLE PCFV heme follows no need for IVC filter, image review and no evidence of clot on second image cancel IVC filter BP management dc plan as per PMD case discussed and evaluated by supervising physician Subjective Allergies: Coded Allergies: NO KNOWN ALLERGIES (Unverified Allergy, Unknown, 03/31/15) Subjective afebrile, no leucocytosis on RA pulse oximetry stable declined EGD hematuria resolved Objective Last 24 Hour Vital Signs Date Time Temp Pulse Resp B/P Pulse Ox O2 Delivery O2 Flow Rate FiO2 03/16/17 08:00 97.9 68 18 138/67 96 Room Air 03/16/17 06:09 76 145/72 03/16/17 04:00 98.6 76 20 145/72 96 Room Air 03/16/17 00:00 98.8 70 18 178/92 98 Room Air 03/15/17 23:57 72 178/91 03/15/17 21:26 185/93 03/15/17 20:00 98.8 72 18 185/93 99 Room Air 03/15/17 16:00 98.3 72 20 169/85 99 Room Air 03/15/17 11:40 98.0 74 18 143/88 99 Room Air Intake and Output 03/15/17 03/16/17 19:00 07:00 Intake Total 1960 ml 1500 ml Output Total 1850 ml 1300 ml Balance 110 ml 200 ml Intake Oral 1280 ml IV Total 680 ml 1500 ml Output Urine Total 1850 ml 1300 ml # Bowel Movements 1 Objective General Appearance: no acute distress HEENT: normocephalic, atraumatic, anicteric, legally blind bilaterally Respiratory/Chest: lungs clear, no respiratory distress, no accessory muscle use Cardiovascular: normal peripheral pulses, normal rate, regular rhythm, no JVD Abdomen: normal bowel sounds, soft, non tender, non distended Genitourinary: other - Hough with blood tinged urine Extremities: no edema, pedal pulses normal Neurologic/Psychiatric: abnormal gait, alert, oriented x 3, responsive Musculoskeletal: normal muscle bulk Microbiology Date/Time Source Procedure Growth Status 03/13/17 17:53 Blood Blood Culture - Preliminary NO GROWTH AFTER 24 HOURS Resulted 03/13/17 17:40 Blood Blood Culture - Preliminary NO GROWTH AFTER 24 HOURS Resulted 03/13/17 20:05 Stool Stool Culture - Final NO SALMONELLA,SHIGELLA,OR CAMPYLOBACT... Complete 03/13/17 20:05 Stool Clostridium difficile Toxin Assay - Final Complete 03/13/17 23:00 Indwelling Cath Urine Culture - Final NO GROWTH AFTER 48 HOURS Complete Laboratory Tests 03/15/17 18:15: Urine Random Creatinine [Pending], Urine Random Microalbumin [Pending], Urine Microalbumin/Creatinine Ratio [Pending] 03/16/17 06:00: Stool Occult Blood [Pending] 03/16/17 06:44: White Blood Count 7.0, Red Blood Count 3.49L, Hemoglobin 10.6L, Hematocrit 31.3L , Mean Corpuscular Volume 90, Mean Corpuscular Hemoglobin 30.3, Mean Corpuscular Hemoglobin Concent 33.8, Red Cell Distribution Width 12.3, Platelet Count 87L, Mean Platelet Volume 11.8H, Neutrophils (%) (Auto) , Lymphocytes (%) (Auto) , Monocytes (%) (Auto) , Eosinophils (%) (Auto) , Basophils (%) (Auto) , Differential Total Cells Counted 100, Neutrophils % (Manual) 64, Lymphocytes % ( Manual) 29, Monocytes % (Manual) 2, Eosinophils % (Manual) 5H, Basophils % ( Manual) 0, Band Neutrophils 0, Platelet Estimate DecreasedL, Platelet Morphology Normal, Red Blood Cell Morphology Normal, Sodium Level 142, Potassium Level 3.3L, Chloride Level 107, Carbon Dioxide Level 25, Anion Gap 10 , Blood Urea Nitrogen 11, Creatinine 1.3H, Estimat Glomerular Filtration Rate , Glucose Level 92, Calcium Level 7.9L, Phosphorus Level 3.6, Magnesium Level 1.8 Current Medications Medications (Trade) Dose Ordered Sig/Dexter Route PRN Reason Start Time Stop Time Status Last Admin Dose Admin Acetaminophen (Tylenol) 650 mg Q4H PRN ORAL fever 03/13/17 16:00 04/12/17 15:59 Al Hydroxide/Mg Hydroxide (Mylanta II) 30 ml Q6H PRN ORAL dyspepsia 03/13/17 16:00 04/12/17 15:59 Cefepime HCl/ Dextrose (Maxipime/D5W) 55 ml @ 110 mls/hr Q24H IVPB 03/14/17 18:00 03/21/17 17:59 03/15/17 17:26 Clonidine HCl (Catapres) 0.1 mg Q6H PRN ORAL sbp > 160 03/15/17 21:15 04/14/17 21:14 03/15/17 21:26 Dextrose STAT PRN IV Hypoglycemia 03/13/17 16:00 04/12/17 15:59 Diltiazem HCl (Cardizem) 30 mg EVERY 8 HOURS ORAL 03/15/17 23:30 04/14/17 23:29 03/16/17 06:09 Docusate Sodium (Colace) 100 mg TWICE A DAY ORAL 03/16/17 09:00 04/15/17 08:59 03/16/17 09:07 Finasteride (Proscar) 5 mg DAILY ORAL 03/14/17 09:00 04/13/17 08:59 03/16/17 08:36 Lorazepam (Ativan 2mg/ml 1ml) 0.5 mg Q4H PRN IV For Anxiety 03/13/17 16:00 03/20/17 15:59 Morphine Sulfate (Morphine Sulfate) 1 mg Q4H PRN IVP For Pain 4-10 03/13/17 16:00 03/20/17 15:59 03/13/17 22:40 Ondansetron HCl (Zofran) 4 mg Q6H PRN IVP Nausea & Vomiting 03/13/17 16:00 04/12/17 15:59 Pantoprazole (Protonix) 40 mg DAILY ORAL 03/16/17 09:00 04/15/17 08:59 03/16/17 08:36 Polyethylene Glycol (Miralax) 17 gm HSPRN PRN ORAL Constipation 03/13/17 16:00 04/12/17 15:59 Sodium Chloride (Sodium Chloride 1000ml bag) 1,000 ml @ 125 mls/hr Q8H IV 03/13/17 10:30 04/12/17 10:29 03/16/17 10:40 Tamsulosin HCl (Flomax) 0.4 mg BEDTIME ORAL 03/14/17 21:00 04/13/17 20:59 03/15/17 20:22 Zolpidem Tartrate (Ambien) 5 mg HSPRN PRN ORAL Insomnia 03/13/17 16:00 04/12/17 15:59 Eduard ([facility])Dasia NP Mar 16, 2017 10:57
[2017-03-16 12:00] VITALS: BP 172/88
[2017-03-16 12:11] LABS: CREATININE RANDOM URINE 76.4 mg/dL (Not Estab.); MICROALBUMIN/CREATININE RATIO 117.1 mg/g creat (0.0-30.0)
--- NOTE | 2017-03-16 13:18 | Nephrology Progress Note ---
Assessment/Plan Assessment 1. Acute renal failure, 2. Hypocalcemia. 3. Hematuria. 4.obstructive uropathy 5.hypokalemia Plan plan replace k to continue current iv monitoring renal function avoid NSAID replace electrolyte Subjective Constitutional: Reports: no symptoms HEENT: Reports: no symptoms Genitourinary: Reports: no symptoms Neurologic/Psychiatric: Reports: no symptoms Subjective alert and wake no complaints Objective Objective Last 24 Hour Vital Signs Date Time Temp Pulse Resp B/P Pulse Ox O2 Delivery O2 Flow Rate FiO2 03/16/17 12:16 172/88 03/16/17 12:00 98.1 63 17 172/88 98 Room Air 03/16/17 08:00 97.9 68 18 138/67 96 Room Air 03/16/17 06:09 76 145/72 03/16/17 04:00 98.6 76 20 145/72 96 Room Air 03/16/17 00:00 98.8 70 18 178/92 98 Room Air 03/15/17 23:57 72 178/91 03/15/17 21:26 185/93 03/15/17 20:00 98.8 72 18 185/93 99 Room Air 03/15/17 16:00 98.3 72 20 169/85 99 Room Air Intake and Output 03/15/17 03/16/17 19:00 07:00 Intake Total 1960 ml 1500 ml Output Total 1850 ml 1300 ml Balance 110 ml 200 ml Intake Oral 1280 ml IV Total 680 ml 1500 ml Output Urine Total 1850 ml 1300 ml # Bowel Movements 1 Laboratory Tests 03/15/17 18:15: Urine Random Creatinine 76.4, Urine Random Microalbumin 89.5, Urine Microalbumin /Creatinine Ratio 117.1H 03/16/17 06:00: Stool Occult Blood [Pending] 03/16/17 06:44: White Blood Count 7.0, Red Blood Count 3.49L, Hemoglobin 10.6L, Hematocrit 31.3L , Mean Corpuscular Volume 90, Mean Corpuscular Hemoglobin 30.3, Mean Corpuscular Hemoglobin Concent 33.8, Red Cell Distribution Width 12.3, Platelet Count 87L, Mean Platelet Volume 11.8H, Neutrophils (%) (Auto) , Lymphocytes (%) (Auto) , Monocytes (%) (Auto) , Eosinophils (%) (Auto) , Basophils (%) (Auto) , Differential Total Cells Counted 100, Neutrophils % (Manual) 64, Lymphocytes % ( Manual) 29, Monocytes % (Manual) 2, Eosinophils % (Manual) 5H, Basophils % ( Manual) 0, Band Neutrophils 0, Platelet Estimate DecreasedL, Platelet Morphology Normal, Red Blood Cell Morphology Normal, Sodium Level 142, Potassium Level 3.3L, Chloride Level 107, Carbon Dioxide Level 25, Anion Gap 10 , Blood Urea Nitrogen 11, Creatinine 1.3H, Estimat Glomerular Filtration Rate , Glucose Level 92, Calcium Level 7.9L, Phosphorus Level 3.6, Magnesium Level 1.8 Height (Feet): 5 Height (Inches): 5.00 Weight (Pounds): 125 Objective HEAD AND NECK: No JVP. No LAD. No thyromegaly. Extraocular movement intact. Pupils are reactive to light and accommodation. LUNGS: Clear to auscultation. CARDIAC: Regular rate and rhythm. S1 and S2. No murmur. No rub. ABDOMEN: Soft, nontender, and nondistended. EXTREMITIES: No edema. No clubbing. No cyanosis. NEUROLOGIC: Cranial nerves II to XII within normal limits. Upper and lower extremities are grossly intact. ORIANA MEJIA Mar 16, 2017 13:18
[2017-03-16 13:30] VITALS: BP 168/82
--- NOTE | 2017-03-16 15:11 | Infectious Diseases Prog Note ---
Assessment/Plan Problems: (1) UTI (urinary tract infection) Assessment & Plan: suspect due to obstructive uropathy , resolved with cefepime , urine culture is negative , will stop cefepime empirically. (2) Enlarged prostate Assessment & Plan: recommend urology eval , and renal US (3) KELIN (acute kidney injury) Assessment & Plan: suspect due to obstructive uropathy , had urology eval, needs to keep espinoza to prevent recurrent obstruction (4) Abdominal pain Assessment & Plan: improved , due to the above, continue pain management as per the primary team Subjective Constitutional: Reports: no symptoms HEENT: Reports: no symptoms Respiratory: Reports: no symptoms Breasts: Reports: no symptoms Cardiovascular: Reports: no symptoms Gastrointestinal/Abdominal: Reports: no symptoms Genitourinary: Reports: no symptoms Neurologic: Reports: no symptoms Psychiatric: Reports: no symptoms Skin: Reports: no symptoms Endocrine: Reports: no symptoms Hematologic: Reports: no symptoms Allergies: Coded Allergies: NO KNOWN ALLERGIES (Unverified Allergy, Unknown, 03/31/15) Objective Vital Signs Last 24 Hour Vital Signs Date Time Temp Pulse Resp B/P Pulse Ox O2 Delivery O2 Flow Rate FiO2 03/16/17 13:30 98.2 64 17 168/82 98 Room Air 03/16/17 12:16 172/88 03/16/17 12:00 98.1 63 17 172/88 98 Room Air 03/16/17 08:00 97.9 68 18 138/67 96 Room Air 03/16/17 06:09 76 145/72 03/16/17 04:00 98.6 76 20 145/72 96 Room Air 03/16/17 00:00 98.8 70 18 178/92 98 Room Air 03/15/17 23:57 72 178/91 03/15/17 21:26 185/93 03/15/17 20:00 98.8 72 18 185/93 99 Room Air 03/15/17 16:00 98.3 72 20 169/85 99 Room Air Height (Feet): 5 Height (Inches): 5.00 Weight (Pounds): 125 General Appearance: WD/WN, no acute distress HEENT: normocephalic, atraumatic, anicteric, mucous membranes moist, PERRL Respiratory/Chest: chest wall non-tender, lungs clear, normal breath sounds, no respiratory distress, no accessory muscle use Cardiovascular: normal peripheral pulses, normal rate, regular rhythm, no gallop/murmur, no JVD Abdomen: normal bowel sounds, soft, non tender, no organomegaly, non distended , no mass, no scars Extremities: no cyanosis, no clubbing Skin: no rash, no lesions, no ulcers Neurologic/Psychiatric: alert, oriented x 3 Microbiology Date/Time Source Procedure Growth Status 03/13/17 17:53 Blood Blood Culture - Preliminary NO GROWTH AFTER 48 HOURS Resulted 03/13/17 17:40 Blood Blood Culture - Preliminary NO GROWTH AFTER 48 HOURS Resulted 03/13/17 20:05 Stool Stool Culture - Final NO SALMONELLA,SHIGELLA,OR CAMPYLOBACT... Complete 03/13/17 20:05 Stool Clostridium difficile Toxin Assay - Final Complete 03/13/17 23:00 Indwelling Cath Urine Culture - Final NO GROWTH AFTER 48 HOURS Complete Laboratory Tests Test 03/15/17 18:15 03/16/17 06:00 03/16/17 06:44 Urine Random Creatinine 76.4 mg/dL (Not Estab.) Urine Random Microalbumin 89.5 ug/mL (Not Estab.) Urine Microalbumin/Creatinine Ratio 117.1 mg/g creat Stool Occult Blood Pending White Blood Count 7.0 K/UL (4.8-10.8) Red Blood Count 3.49 M/UL (4.70-6.10) L Hemoglobin 10.6 G/DL (14.2-18.0) L Hematocrit 31.3 % (42.0-52.0) L Mean Corpuscular Volume 90 FL (80-99) Mean Corpuscular Hemoglobin 30.3 PG (27.0-31.0) Mean Corpuscular Hemoglobin Concent 33.8 G/DL (32.0-36.0) Red Cell Distribution Width 12.3 % (11.6-14.8) Platelet Count 87 K/UL (150-450) L Mean Platelet Volume 11.8 FL (6.5-10.1) H Neutrophils (%) (Auto) % (45.0-75.0) Lymphocytes (%) (Auto) % (20.0-45.0) Monocytes (%) (Auto) % (1.0-10.0) Eosinophils (%) (Auto) % (0.0-3.0) Basophils (%) (Auto) % (0.0-2.0) Differential Total Cells Counted 100 Neutrophils % (Manual) 64 % (45-75) Lymphocytes % (Manual) 29 % (20-45) Monocytes % (Manual) 2 % (1-10) Eosinophils % (Manual) 5 % (0-3) H Basophils % (Manual) 0 % (0-2) Band Neutrophils 0 % (0-8) Platelet Estimate Decreased L Platelet Morphology Normal Red Blood Cell Morphology Normal Sodium Level 142 mEQ/L (135-145) Potassium Level 3.3 mEQ/L (3.4-4.9) L Chloride Level 107 mEQ/L (98-107) Carbon Dioxide Level 25 mEQ/L (20-30) Anion Gap 10 (5-15) Blood Urea Nitrogen 11 mg/dL (7-23) Creatinine 1.3 mg/dL (0.7-1.2) H Estimat Glomerular Filtration Rate mL/min (>60) Glucose Level 92 mg/dL (74-106) Calcium Level 7.9 mg/dL (8.6-10.2) L Phosphorus Level 3.6 mg/dL (2.5-4.8) Magnesium Level 1.8 mg/dL (1.7-2.5) Current Medications Medications (Trade) Dose Ordered Sig/Dexter Route PRN Reason Start Time Stop Time Status Last Admin Dose Admin Acetaminophen (Tylenol) 650 mg Q4H PRN ORAL fever 03/13/17 16:00 04/12/17 15:59 Al Hydroxide/Mg Hydroxide (Mylanta II) 30 ml Q6H PRN ORAL dyspepsia 03/13/17 16:00 04/12/17 15:59 Cefepime HCl/ Dextrose (Maxipime/D5W) 55 ml @ 110 mls/hr Q24H IVPB 03/14/17 18:00 03/21/17 17:59 03/15/17 17:26 Clonidine HCl (Catapres) 0.1 mg Q6H PRN ORAL sbp > 160 03/15/17 21:15 04/14/17 21:14 03/16/17 12:16 Dextrose STAT PRN IV Hypoglycemia 03/13/17 16:00 04/12/17 15:59 Diltiazem HCl (Cardizem) 30 mg EVERY 8 HOURS ORAL 03/15/17 23:30 9/17/17 23:29 03/16/17 06:09 Docusate Sodium 100 mg 100 mg TWICE A DAY ORAL 03/16/17 09:00 04/15/17 08:59 03/16/17 09:07 Finasteride (Proscar) 5 mg DAILY ORAL 03/14/17 09:00 04/13/17 08:59 03/16/17 08:36 Hydralazine HCl (Apresoline) 25 mg Q6HR ORAL 03/16/17 18:00 04/15/17 17:59 Lorazepam (Ativan 2mg/ml 1ml) 0.5 mg Q4H PRN IV For Anxiety 03/13/17 16:00 03/20/17 15:59 Morphine Sulfate (Morphine Sulfate) 1 mg Q4H PRN IVP For Pain 4-10 03/13/17 16:00 03/20/17 15:59 03/13/17 22:40 Ondansetron HCl (Zofran) 4 mg Q6H PRN IVP Nausea & Vomiting 03/13/17 16:00 04/12/17 15:59 Pantoprazole (Protonix) 40 mg DAILY ORAL 03/16/17 09:00 04/15/17 08:59 03/16/17 08:36 Polyethylene Glycol (Miralax) 17 gm HSPRN PRN ORAL Constipation 03/13/17 16:00 04/12/17 15:59 Potassium Chloride (KCl 10mEq/100ml Premix) 100 ml @ 100 mls/hr Q1HR IVPB 03/16/17 14:00 03/16/17 16:59 03/16/17 14:22 Sodium Chloride (Sodium Chloride 1000ml bag) 1,000 ml @ 125 mls/hr Q8H IV 03/13/17 10:30 04/12/17 10:29 03/16/17 10:40 Tamsulosin HCl (Flomax) 0.4 mg BEDTIME ORAL 03/14/17 21:00 04/13/17 20:59 03/15/17 20:22 Zolpidem Tartrate (Ambien) 5 mg HSPRN PRN ORAL Insomnia 03/13/17 16:00 04/12/17 15:59 Philip Jensen M.D. Mar 16, 2017 15:11
[2017-03-16] MEDS ORDERED: ACETAMINOPHEN325 M1 ORAL (15:52)
[2017-03-16] MEDS ORDERED: MYLANTA II30 ML PO (15:53)
[2017-03-16] MEDS ORDERED: DOCUSATE SODIU100 MG ORAL (15:53)
[2017-03-16] MEDS ORDERED: PROSCAR5 MG ORAL (15:54)
[2017-03-16] MEDS ORDERED: DILTIAZEM HCL60 MG PO (15:54)
[2017-03-16] MEDS ORDERED: PROTONIX40 MG ORAL (15:55)
[2017-03-16] MEDS ORDERED: MIRALAX17 G2 ORAL ×2 (15:56→15:59)
[2017-03-16] MEDS ORDERED: TAMSULOSIN HCL0.4 MG ORAL (15:56)
[2017-03-16] MEDS ORDERED: AMBIEN5 MG ORAL (15:57)
[2017-03-16] MEDS ORDERED: MYLANTA II30 ML ORAL (15:59)
[2017-03-16 16:00] VITALS: BP 159/94
[2017-03-16] MEDS: Cefepime 500mg in D5W 55ml IVPB SCH (18:00)
[2017-03-16] MEDS ORDERED: HydrALAZINE 25mg tab ORAL SCH (18:00)
[2017-03-16] MEDS ORDERED: Tubing IV Secondary IV ONE (19:09)
--- NOTE | 2017-03-17 17:22 | Cardiology Report ---
APPROVED REPORT EKG Measurement Heart [id number] ME [id number] [id number] Normal sinus rhythm Normal ECG
--- NOTE | 2017-03-17 17:52 | Diagnostic Imaging Report ---
APPROVED REPORT CPT Code: 06142 Present Symptoms Lower Extremity Pain: Comments: Hx HTN, BPH, inability to urinate. PLEASE NOTE FOLLOW-UP SCAN ON RIGHT LEG DONE 03/15/2017 03/13/2017 RIGHT LEG: Venous imaging reveals acute, non-occlusive thrombus in the proximal common femoral vein. Imaging reveals patency of the superficial femoral, popliteal and calf veins. The greater saphenous vein is also within normal limits. LEFT LEG: Venous imaging reveals a patent deep venous system. There is no evidence of thrombus within the femoral, popliteal or tibial segments. The greater saphenous vein is also within normal limits. Doppler indicates normal spontaneous flow within these segments. RIOS Sal and RIOS Brantley were informed of abnormal results at 21:20 hrs. A FOLLOW-UP SCAN WAS PERFORMED ON THE PATIENT'S RIGHT COMMON FEMORAL VEIN ON 03/15/2017 RIGHT LEG: Follow-up venous imaging reveals patency and compressibility of the proximal, mid and distal common femoral vein, and the patency of the proximal superficial femoral vein. The spectral Doppler waveform is normal. There is no evidence of acute DVT bilaterally. RIOS Arce was informed at 17:[address] Millan was also informed.
--- NOTE | 2017-03-18 08:08 | Cardiology Report ---
APPROVED REPORT EXAM: Two-dimensional and M-mode echocardiogram with Doppler and color Doppler. INDICATION Hypertension/HCVD M-Mode DIMENSIONS IVSd1.4 (0.7-1.1cm)Left Atrium (MM)4.5 (1.6-4.0cm) LVDd4.3 (3.5-5.6cm)Aortic Root3.2 (2.0-3.7cm) PWd1.2 (0.7-1.1cm)Aortic Cusp Exc.2.0 (1.5-2.0cm) LVDs1.8 (2.5-4.0cm) PWs2.4 cm Normal left ventricular chamber size, systolic function and wall motion. Left ventricular ejection fraction estimated to be 55 %. Mild left ventricular hypertrophy. Small pericardial effusion. All other cardiac chamber sizes are within normal limits. Mild focal aortic valve sclerosis with adequate cusp excursion. Heavily thickened mitral valve leaflets with normal excursion. Echogenic material noted on the posterior mitral valve leaflet. Moderate mitral annulus and aortic root calcification. Pulmonic valve not well visualized. Normal tricuspid valve structure. IVC at normal size with physiologic collapse. Possible vegetation seen on posterior mitral valve leaflet, however SBE may not be excluded by transthoracic 2-D echo. Consider AURELIANO if clinically indicated. A color flow and spectral Doppler study was performed and revealed: Trace aortic regurgitation. Moderate mitral regurgitation. Mitral diastolic velocities suggest reduced left ventricular relaxation (Grade I). Mild tricuspid regurgitation. Tricuspid systolic velocities suggests peak right ventricular systolic pressure of 38 mmHg, consistent with mild pulmonary hypertension. No pulmonic regurgitation present.
--- NOTE | 2017-03-18 15:12 | General Progress Note ---
Assessment/Plan Assessment/Plan 1. Acute nonocclusive clot noted on prior imaging. I have again reviewed the imaging with printer technician, and there is no evidence of a clot. We will cancel the inferior vena cava filter given there was no clot. No need for anticoagulation. 2. Thrombocytopenia. We will evaluate hepatitis at the time of his human immunodeficiency virus as well as ultrasound of the abdomen. --> I ordered for these labs but they were cancelled. Outpatient screening recommended 3. Anemia. 4. Gastrointestinal bleed. The patient refusing esophagogastroduodenoscopy. 5. Acute kidney disease. Creatinine currently improving. 6. Leukocytosis, likely secondary to infection, has improved. Continue to monitor. 7. Hypertension, better controlled with Cariology service. 8. Glaucoma, legally blind. 9. Hematuria with a downtrending hemoglobin and hematocrit. Continue to closely monitor. Subjective Date patient seen: Mar 16, 2017 Constitutional: Reports: no symptoms HEENT: Reports: no symptoms Cardiovascular: Reports: no symptoms Respiratory: Reports: no symptoms Gastrointestinal/Abdominal: Reports: no symptoms Genitourinary: Reports: no symptoms Neurologic/Psychiatric: Reports: no symptoms Endocrine: Reports: no symptoms Hematologic/Lymphatic: Reports: anemia Allergies: Coded Allergies: NO KNOWN ALLERGIES (Unverified Allergy, Unknown, 03/31/15) Objective Height (Feet): 5 Height (Inches): 5.00 Weight (Pounds): 125 AP ARREAGA Mar 18, 2017 15:12
--- NOTE | 2017-03-19 09:44 | Discharge Summary ---
Discharge Summary Hospital Course Date of Admission Mar 13, 2017 at 11:20 Date of Discharge Mar 16, 2017 at 19:10 Admitting Diagnosis abdominal pain and constipation SURINDER Echeverria is a 71 year old male who was admitted on Mar 13, 2017 at 11:20 for Abdominal Pain And Constipation Hospital Course dc summary #[id number] Discharge Medications Continued Medications: Acetaminophen* (Acetaminophen 325MG Tablet*) 325 Mg Tablet 650 MG ORAL Q4H PRN for For Pain, TAB Al Hydroxide/mg Hydroxide (Mag-Al Plus Suspension) 30 Ml Oral.susp 30 ML ORAL Q6HR PRN for PRN, ML Diltiazem Hcl (Diltiazem Hcl) 60 Mg Tablet 60 MG PO EVERY 12 HOURS, TAB Docusate Sodium* (Docusate Sodium*) 100 Mg Capsule 100 MG ORAL TWICE A DAY, CAP Finasteride* (Proscar*) 5 Mg Tablet 5 MG ORAL DAILY, #30 TAB 0 Refills Pantoprazole* (Protonix*) 40 Mg Tablet.dr 40 MG ORAL DAILY, TAB Polyethylene Glycol 3350* (Miralax*) 17 Gm Powd.pack 17 GM ORAL DAILY PRN for Constipation, PACKET Tamsulosin Hcl (Tamsulosin Hcl*) 0.4 Mg Cap.er.24h 0.4 MG ORAL BEDTIME, CAP Zolpidem Tartrate* (Ambien*) 5 Mg Tablet 5 MG ORAL BEDTIME PRN for Insomnia, TAB Discharge Condition Upon Discharge: stable Discharge Disposition Patient was discharged to Home with Home Health(06) Discharge Diagnoses: Eduard (Aric)Dasia NP Mar 19, 2017 09:44
--- NOTE | 2017-03-20 04:21 | Discharge Summary 2 SIG ---
DATE OF ADMISSION: 03/13/2017 DATE OF DISCHARGE: 03/16/2017 HISTORY OF PRESENT ILLNESS: 71-year-old male came to emergency room complaining of abdominal pain and constipation for three days. The patient had a prior history of hypertension, glaucoma, legally blind. The patient was afebrile. Blood pressure was significantly elevated - 196/102. Pulse oximetry was stable on room air. The patient exhibited leukocytosis with WBC- 12.7. BUN -20 and creatinine -3.1. CT of the abdomen and pelvis revealed markedly enlarged lobulated prostate, likely on the basis of benign prostatic hypertrophy, neoplasm was not excludable. Marked bladder distention. Mild bilateral hydronephrosis and hydroureter. Fluid-filled borderline distended proximal colon, possibly indicative of diarrhea or mild colitis. Mildly dilated contrast filled esophagus could be indicative of gastroesophageal reflux. CT of the abdomen was done only with oral contrast due to elevated creatinine. The patient was admitted for further management. ADMITTING DIAGNOSES: 1. Possible sepsis. 2. Bilateral hydronephrosis. 3. Urinary retention. 4. Markedly enlarged prostate. 5. Acute renal failure on possible chronic kidney disease. 6. Hypertensive urgency. HOSPITAL COURSE: The patient was admitted. Gastrointestinal, ID, Nephrology, Cardiology, and Pulmonary consult were requested along with the urologist consult. Urology seen and evaluated the patient. The patient initially refused Hough, then eventually Hough was placed. The patient had hematuria. Urologist added Flomax and Proscar and advised to keep Hough in upon discharge. Hematuria slowly resolved with manual bladder irrigation on as needed basis. Urologist recommended follow up as outpatient for uroflow and cystoscopy and further workup. Hematuria resolved. Hemoglobin and hematocrit stable. GI followed. The patient declined esophagogastroduodenoscopy. According to the gastrointestinal specialist, the patient needs esophagogastroduodenoscopy and colonoscopy. Bowel regimen instituted. Stool OB was negative. Leukocytosis resolved. Hemoglobin and hematocrit were closely monitored. No need for transfusion. Stool culture negative. Stool for C. diff negative. The patient was on antibiotic. ID followed. Urine culture negative. Antibiotics discontinued. Renal ultrasound revealed echogenic kidneys consistent with a medical renal disease. Acute renal failure likely was precipitated by chronic bladder outlet obstruction . Acute renal failure resolved. Creatinine trending down. Potassium was replaced as per medical associate, who closely followed the patient. Renal parameters and electrolytes were closely monitored and replaced as needed. Pain management provided. Bowel regimen instituted. The patient was on PPI. Venous duplex of bilateral lower extremities revealed acute nonocclusive thrombus of the right lower extremity proximal common femoral vein. Subsequently, a second venous duplex was ordered as per junior underwriter, whose consult was requested urgently. Per junior underwriter, no evidence of clot on second image. Image personally reviewed by junior underwriter. No need for IVC filter, which was initially ordered. The patient was initially with hypertensive urgency. Qualification Engineer closely followed and titrated antihypertensive medication regimen. Blood pressure controlled. The patient was stable for discharge home with home health services and Hough catheter. DISCHARGE DIAGNOSES: 1. Possible sepsis. 2. Bilateral hydronephrosis. 3. Urinary retention secondary to enlarged prostate. 4. Markedly enlarged prostate. 5. Probably benign prostatic hypertrophy. 6. Obstructive uropathy. 7. Possible mild acute colitis. 8. Abdominal pain. 9. Constipation. 10. Hypertensive urgency. 11. Acute renal failure on chronic kidney disease, likely secondary to chronic bladder outlet obstruction. 12. Mild anemia. 13. Glaucoma, legally blind. 14. Hypokalemia. DISCHARGE MEDICATIONS: See medication reconciliation list. DISCHARGE INSTRUCTIONS: The patient is discharged home. Follow up with home health services. Follow up with primary medical doctor. Follow up with the urologist as outpatient. Romeo Bone D.O. I have been assigned to dictate discharge summary on this account and I was not involved in the patient's management. Dasia Chapa (Vanchtein) N.PTroy DR: HARMAN JOB#: [id number] CC: RON
== END 2017-03-16 19:10 | disposition home health service (06) | DRG 872 ==
LOC: EMR 09:22 → 4E 11:20 → EDBEDREQ 12:17
DX: A41.9 Sepsis, unspecified organism (principal); N17.9 Acute kidney failure, unspecified; I82.411 Acute embolism and thrombosis of right femoral vein; N13.30 Unspecified hydronephrosis; D69.6 Thrombocytopenia, unspecified; N13.8 Other obstructive and reflux uropathy; N39.0 Urinary tract infection, site not specified; K59.00 Constipation, unspecified; K52.9 Noninfective gastroenteritis and colitis, unspecified; H40.9 Unspecified glaucoma; R10.9 Unspecified abdominal pain; H54.8 Legal blindness, as defined in USA; D64.9 Anemia, unspecified; N40.1 Benign prostatic hyperplasia with lower urinary tract symptoms; R33.8 Other retention of urine; E87.6 Hypokalemia; K21.9 Gastro-esophageal reflux disease without esophagitis; I16.0 Hypertensive urgency
CPT/HCPCS: 36415; 74176; 76775; 80048; 80053; 80061; 81001; 82043; 82044; 82270; 82378; 82550; 82570; 82607; 82728; 82746; 83540; 83550; 83605; 83690; 83735; 84100; 84133; 84300; 84439; 84443; 84550; 85007; 85025; 85044; 85610; 85730; 87040; 87045; 87086; 87324; 89050; 93005; 93306; 93970

== ENCOUNTER 2017-03-20 20:04 | Emergency (ER) | payer MEDICARE, MEDICAID ==
[~2017-03-20] VITALS: Ht 165.1 cm; Wt 56.7 kg
[~2017-03-20 20:04] MED LIST changes: +ACETAMINOPHEN325 M1 ORAL; +AMBIEN5 MG ORAL; +DILTIAZEM HCL60 MG PO; +DOCUSATE SODIU100 MG ORAL; +MIRALAX17 G2 ORAL; +MYLANTA II30 ML ORAL; +MYLANTA II30 ML PO; +PROSCAR5 MG ORAL; +PROTONIX40 MG ORAL; +TAMSULOSIN HCL0.4 MG ORAL; +[UNRECOGNIZED DRUG - REMARK]
[2017-03-20] MEDS ORDERED: UNOBMED (20:20)
[2017-03-20 20:33] VITALS: BP 185/87
[2017-03-20 20:42] VITALS: BP 185/87
--- NOTE | 2017-03-21 00:11 | Emergency Room Report ---
History of Present Illness General Chief Complaint: General Complaint Source: Patient Present Illness HPI Patient is a 71-year-old male who presented after recent Hough catheter placement. The patient was noted to have prior is history of prostate enlargement. He had been given a leg bag however this was unable to contain matter urine he was producing. The patient is having difficulty with ambulation due to blindness and requested a larger size bag. Allergies: Coded Allergies: NO KNOWN ALLERGIES (Unverified Allergy, Unknown, 03/31/15) Patient History Past Medical History: see triage record Reviewed Nursing Documentation: PMH: Agreed, PSxH: Agreed Nursing Documentation-PMH Hx Hypertension: Yes Hx Cancer: No Hx Neurological Problems: No Review of Systems All Other Systems: negative except mentioned in HPI Physical Exam Vital Signs Date Time Temp Pulse Resp B/P (MAP) Pulse Ox O2 Delivery O2 Flow Rate FiO2 03/20/17 20:14 98.1 77 14 185/87 100 Room Air General Appearance: well appearing, no apparent distress, GCS 15 Head: normocephalic, atraumatic ENT: hearing grossly normal, normal voice Neck: full range of motion, supple Respiratory: no respiratory distress, speaking full sentences Cardiovascular #1: normal inspection Gastrointestinal: normal inspection Musculoskeletal: no calf tenderness Neurologic: normal gait Psychiatric: mood/affect normal Skin: no rash Medical Decision Making Diagnostic Impression: Primary Impression: Hough catheter in place ER Course Patient presented for Hough catheter issue. Differential diagnosis included was not limited to obstruction, infection, malposition among others. Patient's benign exam and does not appear to require any further imaging or laboratory testing at this time. The patient is currently on antibiotics and has a indwelling catheter. At the catheter appears to be fine leg bag was switched to a full-size bag. Patient was advised followup with his primary care physician for further evaluation and treatment as needed. Last Vital Signs Date Time Temp Pulse Resp B/P (MAP) Pulse Ox O2 Delivery O2 Flow Rate FiO2 03/20/17 20:42 98.1 14 185/87 100 Room Air 03/20/17 20:14 77 Status: improved Disposition: HOME, SELF-CARE Condition: Stable Referrals: NON PHYSICIAN (PCP) Patient Instructions: Hough Catheter Care, Adult Duncan Cuenca Mar 21, 2017 00:11
== END 2017-03-20 20:45 | disposition home or self-care (01) ==
LOC: EMR 20:38
DX: Z46.6 Encounter for fitting and adjustment of urinary device (principal); N40.1 Benign prostatic hyperplasia with lower urinary tract symptoms; I10 Essential (primary) hypertension; H54.0 Blindness, both eyes
CPT/HCPCS: 99283

== ENCOUNTER 2017-04-09 11:24 | Outpatient (CLI) | payer MEDICARE, MEDICAID ==
[~2017-04-09 11:24] MED LIST changes: +UNOBMED
--- NOTE | 2017-04-09 13:42 | GI Progress Note ---
Assessment/Plan Problems: (1) Colonoscopy planned SNOMED: 380532135 (2) Dysphagia ICD Codes: R13.10 - Dysphagia, unspecified SNOMED: 61351880, 343909560 (3) GERD (gastroesophageal reflux disease) ICD Codes: K21.9 - Gastro-esophageal reflux disease without esophagitis SNOMED: 726011308 (4) Anemia ICD Codes: D64.9 - Anemia, unspecified SNOMED: 892717039 (5) Abdominal pain ICD Codes: R10.9 - Unspecified abdominal pain SNOMED: 04912210 Status: stable Status Narrative Seen with Dr. Davidson. Assessment/Plan EGD/colonoscopy scheduled for 04/12/17. - CLD and prep instructions given and acknowledged by patient. will consider video swallow Subjective Subjective food gets "stuck" in esophagus BM's are good loss of 4lbs in the past month patient cannot recall medications, states he takes one for his BP and one for his prostate. Objective T 98.1 BP 142/73 P 68 100 RA WT 121.3 lbs General Appearance: no apparent distress, alert, thin, other - patient is blind Cardiovascular: normal rate Respiratory/Chest: normal breath sounds, no respiratory distress Abdominal Exam: normal bowel sounds, non tender, soft Extremities: normal range of motion Sosa Rodriguez N.P. Apr 09, 2017 13:42
[2017-04-09 14:36] VITALS: BP 142/73
== END 2017-04-09 12:00 | disposition home or self-care (01) ==
LOC: PAN 11:24
DX: K21.9 Gastro-esophageal reflux disease without esophagitis (principal); R10.9 Unspecified abdominal pain; D64.9 Anemia, unspecified; R13.10 Dysphagia, unspecified
CPT/HCPCS: 99201

== ENCOUNTER 2017-04-12 09:26 | Day surgery (SDC) | payer MEDICARE, MEDICAID ==
[2017-04-12] VITALS (8 sets, daily range): BP systolic 164–187; BP diastolic 89–100
[~2017-04-12] VITALS: Ht 165.1 cm; Wt 54.9 kg
[2017-04-12] MEDS ORDERED: Propofol 200mg/20ml IV ONE (11:30)
[2017-04-12] MEDS ORDERED: Lidocaine 1% MPF 10mg/ml 5ml ONE (11:30)
--- NOTE | 2017-04-12 11:38 | Pre-Procedure Note/Attestation ---
Pre-Procedure Note/Attestation Complete Prior to Procedure Planned Procedure: not applicable Procedure Narrative: esophagogastroduodenoscopy and colonoscopy Indications for Procedure Pre-Operative Diagnosis: anemia Attestation I attest that I discussed the nature of the procedure; its benefits; risks and complications; and alternatives (and the risks and benefits of such alternatives ), prior to the procedure, with the patient (or the patient's legal customer retention representative). I attest that, if there was a reasonable possibility of needing a blood transfusion, the patient (or the patient's legal customer retention representative) was given the [facility] standardized written summary, pursuant to the Drew Toshia Blood Safety Act ([place] Health and Safety Code # 1645, as amended). I attest that I re-evaluated the patient just prior to the surgery and that there has been no change in the patient's H&P, except as documented below: SEVERINO WILLIAMSON Apr 12, 2017 11:38
--- NOTE | 2017-04-12 11:39 | Short Stay Surgery H&P ---
History of Present Illness History of Present Illness Chief Complaint see recent consult note HPI Marc Echeverria is a 71 year old male who was admitted on for Anemia,Dysphegia Patient History Allergies: Coded Allergies: NO KNOWN ALLERGIES (Unverified Allergy, Unknown, 03/31/15) PAST MEDICAL HISTORY: Past Surgeries: Social History: Medication History Scheduled Diltiazem Hcl (Diltiazem Hcl), 60 MG PO EVERY 12 HOURS, (Reported) Finasteride* (Proscar*), 5 MG ORAL DAILY, (Reported) Tamsulosin Hcl (Tamsulosin Hcl*), 0.4 MG ORAL BEDTIME, (Reported) Discontinued Medications Acetaminophen* (Acetaminophen 325MG Tablet*), 650 MG ORAL Q4H PRN for For Pain, (Reported) Discontinued Reason: MD discontinued med Al Hydroxide/mg Hydroxide (Mag-Al Plus Suspension), 30 ML PO Q6HR, (Reported) Discontinued Reason: MD discontinued med Al Hydroxide/mg Hydroxide (Mag-Al Plus Suspension), 30 ML ORAL Q6HR PRN for PRN, (Reported) Discontinued Reason: MD discontinued med Ciprofloxacin Hcl* (Ciprofloxacin Hcl*), 500 MG ORAL Q12H Discontinued Reason: Therapy completed Docusate Sodium* (Docusate Sodium*), 100 MG ORAL TWICE A DAY, (Reported) Discontinued Reason: Pt stopped taking med Pantoprazole* (Protonix*), 40 MG ORAL DAILY, (Reported) Discontinued Reason: MD discontinued med Polyethylene Glycol 3350* (Miralax*), 17 GM ORAL DAILY, (Reported) Discontinued Reason: MD discontinued med Zolpidem Tartrate* (Ambien*), 5 MG ORAL BEDTIME PRN for Insomnia, (Reported) Discontinued Reason: MD discontinued med Physical Exam Vital Signs Last Vital Signs Date Time Temp Pulse Resp B/P (MAP) Pulse Ox O2 Delivery O2 Flow Rate FiO2 04/12/17 10:07 98.4 77 16 184/98 100 Room Air Plan Attestation Are the patient's medical conditions optimized for surgery? SEVERINO WILLIAMSON Apr 12, 2017 11:39
--- NOTE | 2017-04-12 11:51 | Endoscopy Procedure Note ---
Endoscopy Procedure Note Indication for Procedure: anemia Procedures Performed: EGD, colonoscopy Operative Findings/Diagnosis: gastritis, HH, hemorrhoids Specimen: yes Pt Tolerated Procedure Well: Yes Estimated Blood Loss: none Anesthesiologist: felicity Anesthesia: MAC Implant(s) used?: No 50 yrs or older w/o bx or poly: No 10yrs. F/U not recommended: Yes If not recommended, why?: Above average risk 10 yrs. F/U needed: Yes 18 years or older w/prev. colo: No SEVERINO WILLIAMSON Apr 12, 2017 11:51
--- NOTE | 2017-04-12 12:22 | Anethesia Preoperative Eval ---
Anesthesia Pre-op PMH/ROS General Date of Evaluation: Apr 12, 2017 Time of Evaluation: 11:32 Anesthesiologist: felicity ASA Score: ASA 3 Mallampati Score Class I : Soft palate, uvula, fauces, pillars visible Class II: Soft palate, uvula, fauces visible Class III: Soft palate, base of uvula visible Class IV: Only hard plate visible Mallampati Classification: Class II Surgeon: tirso Diagnosis: anemia, dysphagia Surgical Procedure: egd/colonoscopy Anesthesia History: none Social History: smoking - nonsmoker Family History: no anesthesia problems Allergies: Coded Allergies: NO KNOWN ALLERGIES (Unverified Allergy, Unknown, 03/31/15) Medications: see eMAR Past Medical History Cardiovascular: Reports: HTN Gastrointestinal/Genitourinary: Reports: GERD Neurologic/Psychiatric: Reports: other - legally blind Anesthesia Pre-op Phys. Exam Physician Exam Last Vital Signs Date Time Temp Pulse Resp B/P (MAP) Pulse Ox O2 Delivery O2 Flow Rate FiO2 04/12/17 12:15 68 16 183/99 100 Room Air 04/12/17 12:12 97.6 Neurologic: other - legally blind Cardiovascular: RRR, no M/R/G Respiratory: CTA Gastrointestinal: S/NT/ND Airway Exam Mallampati Score: Class II MO: full Neck: supple TMD: 2fb Teeth: intact Anesthesia Pre-op A/P Risk Assessment & Plan Assessment: asa3 Plan: mac Status Change Before Surgery: No Pre-Antibiotics Drug: JONES Rivers Apr 12, 2017 12:22
--- NOTE | 2017-04-12 12:24 | Immediate Post-Op Evaluation ---
Immediate Post-Op Evalulation Immediate Post-Op Evalulation Procedure: egd/colonoscopy Date of Evaluation: Apr 12, 2017 Time of Evaluation: 12:24 IV Fluids: 0.9 ns 400ml Blood Products: none Estimated Blood Loss: negligible Blood Pressure Systolic: 183 Blood Pressure Diastolic: 99 Pulse Rate: 63 Respiratory Rate: 18 O2 Sat by Pulse Oximetry: 99 Temperature (Fahrenheit): 97.8 Pain Score (1-10): 0 Nausea: No Vomiting: No Complications none Patient Status: awake, reacts, patent Hydration Status: adequate Drug: JONES Rivers Apr 12, 2017 12:24
--- NOTE | 2017-04-12 12:26 | 48 Hour Post Anesthesia Eval ---
Post Anesthesia Evaluation Procedure: egd/colonoscopy Date of Evaluation: Apr 12, 2017 Time of Evaluation: 12:26 Blood Pressure Systolic: 188 0: 89 Pulse Rate: 77 Respiratory Rate: 18 Temperature (Fahrenheit): 97.8 O2 Sat by Pulse Oximetry: 99 Airway: patent Nausea: No Vomiting: No Pain Intensity: 0 Hydration Status: adequate Cardiopulmonary Status: stable Mental Status/LOC: patient returned to baseline Post-Anesthesia Complications: none Follow-up care needed: N/A JONES ASKEW Apr 12, 2017 12:26
[2017-04-12] MEDS ORDERED: Hydromorphone 0.5mg/0.5ml inj IVP PRN (12:30)
[2017-04-12] MEDS ORDERED: Midazolam 2mg/2ml Inj IVP PRN (12:30)
[2017-04-12] MEDS ORDERED: Atropine Inj 1mg/10ml Syr IV PRN (12:30)
[2017-04-12] MEDS ORDERED: DiphenhydrAMINE 50mg/ml Inj IVP PRN (12:30)
--- NOTE | 2017-04-12 23:30 | Procedure Note ---
DATE OF PROCEDURE: 04/12/2017 SURGEON: Juan M Davidson M.D. PROCEDURE: Upper endoscopy with biopsy and colonoscopy. ANESTHESIOLOGIST: Shweta Ceron M.D. INSTRUMENT: Olympus adult flexible upper endoscope and colonoscope. Indication: Screening colonoscopy, anemia, and abnormal finding on the CT in the esophagus. Reason for Procedure: The procedure, risks, benefits, and possible consequences, including hemorrhage, aspiration, perforation and infection, and alternative treatments, were explained to the patient/legal guardian by Dr. Juan M Davidson and the patient/legal guardian understood and accepted these risks. Description Of Procedure: After informed consent was obtained and the patient was adequately sedated, Olympus upper endoscope was advanced from mouth into the second portion of the duodenum and retroflexion was performed in the stomach. The patient had evidence of distal esophageal ring and small hiatal hernia. In the stomach, there was diffuse gastritis. Random biopsies from antrum and body of the stomach were obtained to rule out H. pylori infection. At this time, the upper endoscope was retrieved and the patient was turned over for colonoscopy. First, rectal exam was performed which was normal. Then the scope was advanced from the rectum into the cecum documented by appendiceal orifice, ileocecal valve, and right upper quadrant palpation. Quality of prep was very good. No obvious polyp was seen in this colonoscopy examination. Retroflexion of rectum showed evidence of large internal hemorrhoids. SUMMARY OF FINDINGS: 1. Distal esophageal ring. 2. Hiatal hernia. 3. Gastritis. 4. Internal hemorrhoids. RECOMMENDATIONS: Follow up biopsies and treat accordingly. Juan M Davidson M.D. DR: TIM JOB#: [id number] CC:
--- NOTE | 2017-04-15 19:11 | Cardiology Report ---
APPROVED REPORT EKG Measurement Heart [id number] Sinus rhythm with premature atrial complexes Otherwise normal ECG
== END 2017-04-12 13:45 | disposition home or self-care (01) ==
LOC: GAS 09:26
DX: Z12.11 Encounter for screening for malignant neoplasm of colon (principal); K29.50 Unspecified chronic gastritis without bleeding; D64.9 Anemia, unspecified; K22.2 Esophageal obstruction; K44.9 Diaphragmatic hernia without obstruction or gangrene; K64.8 Other hemorrhoids; I10 Essential (primary) hypertension; K21.9 Gastro-esophageal reflux disease without esophagitis; H54.8 Legal blindness, as defined in USA; R63.4 Abnormal weight loss; Z68.20 Body mass index [BMI] 20.0-20.9, adult
CPT/HCPCS: 43239; 45378; 93005; J2704; 94003; 94150

== ENCOUNTER 2017-04-16 14:11 | Emergency (ER) | payer MEDICARE, MEDICAID ==
[~2017-04-16] VITALS: Ht 165.1 cm; Wt 56.7 kg
--- NOTE | 2017-04-16 14:44 | Emergency Room Report ---
History of Present Illness General Chief Complaint: General Complaint Source: Patient Present Illness HPI Patient presents with complaints of right-sided chest pain He does associated with eating and drinking However at times he states that he has a pain that area without any Denies any vomiting or diarrhea Patient reports recent upper and lower endoscopy Denies any abdominal pain Patient is legally blind in both eyes Pain is 5/10 sharp and heaviness denies any radiation Allergies: Coded Allergies: NO KNOWN ALLERGIES (Unverified Allergy, Unknown, 03/31/15) Patient History Past Medical History: see triage record Pertinent Family History: none Reviewed Nursing Documentation: PMH: Agreed, PSxH: Agreed Nursing Documentation-PMH Past Medical History: No History, Except For Hx Cardiac Problems: Yes - Blindness in both eyes, glaucoma Hx Hypertension: Yes Hx Pacemaker: No Hx Asthma: No Hx COPD: No Hx Diabetes: No Hx Cancer: No Hx Gastrointestinal Problems: Yes - BPH, f/c Hx Dialysis: No History Of Psychiatric Problem: No Hx Neurological Problems: No Hx Cerebrovascular Accident: No Hx Seizures: No Review of Systems All Other Systems: negative except mentioned in HPI Physical Exam Vital Signs Date Time Temp Pulse Resp B/P (MAP) Pulse Ox O2 Delivery O2 Flow Rate FiO2 04/16/17 14:18 98.2 86 16 173/82 99 Room Air Sp02 EP Interpretation: reviewed, normal General Appearance: well appearing, no apparent distress Head: normocephalic, atraumatic Eyes: bilateral eye other - Patient is blind in both eyes and has no vision ENT: hearing grossly normal, normal pharynx, TMs + canals normal, uvula midline Neck: full range of motion, supple, no meningismus, no bony tend Respiratory: lungs clear, normal breath sounds, no rhonchi, no respiratory distress, no retraction, no accessory muscle use Cardiovascular #1: normal peripheral pulses, regular rate, rhythm, no edema, no gallop, no JVD, no murmur Gastrointestinal: normal bowel sounds, non tender, soft, no mass, no organomegaly, non-distended, no guarding, no hernia, no pulsatile mass, no rebound Genitourinary: no CVA tenderness Musculoskeletal: normal inspection Neurologic: oriented x3, responsive, aircraft instrument mechanic III-XII nml as tested, motor strength/ tone normal, sensory intact Psychiatric: mood/affect normal Skin: normal color, no rash, warm/dry, palpation normal Lymphatic: normal inspection, no adenopathy Medical Decision Making Diagnostic Impression: Primary Impression: ACS (acute coronary syndrome) Additional Impression: Abdominal pain ER Course Patient is a fairly complex patient with multiple differential to consideration including but not limited to cardiac cardiopulmonary and vascular emergencies Patient's baseline blood work are appropriate EKG does not show any acute disease patient was requested for admission At this time the patient reports that the discomfort in the left upper chest area was not his main concern he reports that he wanted to get answers regarding his upper and lower endoscopy, patient also reports that he has been constipated and asking for prescription from his physician Patient was recommended for admission he understands the risk and potential dangers of leaving AGAINST MEDICAL ADVICE I did write the patient a prescription as he requested Patient's primary physician was notified and requested the patient make outpatient followup as soon as possible, Labs Test 04/16/17 14:40 White Blood Count 11.2 K/UL (4.8-10.8) Red Blood Count 3.53 M/UL (4.70-6.10) Hemoglobin 10.5 G/DL (14.2-18.0) Hematocrit 31.4 % (42.0-52.0) Mean Corpuscular Volume 89 FL (80-99) Mean Corpuscular Hemoglobin 29.9 PG (27.0-31.0) Mean Corpuscular Hemoglobin Concent 33.6 G/DL (32.0-36.0) Red Cell Distribution Width 12.1 % (11.6-14.8) Platelet Count 198 K/UL (150-450) Mean Platelet Volume 8.6 FL (6.5-10.1) Neutrophils (%) (Auto) 80.1 % (45.0-75.0) Lymphocytes (%) (Auto) 10.8 % (20.0-45.0) Monocytes (%) (Auto) 6.2 % (1.0-10.0) Eosinophils (%) (Auto) 2.5 % (0.0-3.0) Basophils (%) (Auto) 0.5 % (0.0-2.0) Urine Color Pale yellow Urine Appearance Clear Urine pH 6 (4.5-8.0) Urine Specific [place] 1.005 (1.005-1.035) Urine Protein 2+ (NEGATIVE) Urine Glucose (UA) Negative (NEGATIVE) Urine Ketones Negative (NEGATIVE) Urine Occult Blood 5+ (NEGATIVE) Urine Nitrite Negative (NEGATIVE) Urine Bilirubin Negative (NEGATIVE) Urine Urobilinogen Normal MG/DL (0.0-1.0) Urine Leukocyte Esterase 3+ (NEGATIVE) Urine RBC 5-10 /HPF (0 - 0) Urine WBC 2-4 /HPF (0 - 0) Urine Squamous Epithelial Cells None /LPF (NONE/OCC) Urine Bacteria Few /HPF (NONE) Urine Yeast Few /HPF (NONE) Sodium Level 140 mEQ/L (135-145) Potassium Level 3.3 mEQ/L (3.4-4.9) Chloride Level 98 mEQ/L (98-107) Carbon Dioxide Level 26 mEQ/L (20-30) Anion Gap 16 (5-15) Blood Urea Nitrogen 8 mg/dL (7-23) Creatinine 1.1 mg/dL (0.7-1.2) Estimat Glomerular Filtration Rate mL/min (>60) Glucose Level 93 mg/dL (74-106) Calcium Level 9.0 mg/dL (8.6-10.2) Total Bilirubin 0.3 mg/dL (0.0-1.2) Aspartate Amino Transf (AST/SGOT) 19 U/L (5-40) Alanine Aminotransferase (ALT/SGPT) 16 U/L (3-41) Alkaline Phosphatase 77 U/L (40-129) Total Creatine Kinase 115 U/L (38-174) Creatine Kinase MB 1.9 ng/mL (< 6.7) Creatine Kinase MB Relative Index 1.6 Troponin I < 0.30 ng/mL (<=0.30) Total Protein 7.0 g/dL (6.6-8.7) Albumin 4.0 g/dL (3.5-5.2) Globulin 3.0 g/dL Albumin/Globulin Ratio 1.3 (1.0-2.7) Lipase 44 U/L (< 60) EKG Diagnostic Results Rate: normal Rhythm: NSR ST Segments: no acute changes Rhythm Strip Diag. Results EP Interpretation: yes Rate: 69 Rhythm: NSR, no PVC's, no ectopy Chest X-Ray Diagnostic Results Chest X-Ray Diagnostic Results : Chest X-Ray Ordered: Yes # of Views/Limited/Complete: 1 View Indication: Chest Pain EP Interpretation: Yes Interpretation: no consolidation, no effusion, no pneumothorax Impression: No acute disease Electronically Signed by: Terry Abreu DO Last Vital Signs Date Time Temp Pulse Resp B/P (MAP) Pulse Ox O2 Delivery O2 Flow Rate FiO2 04/16/17 14:18 98.2 86 16 173/82 99 Room Air Status: improved Disposition: AGAINST MEDICAL ADVICE Condition: Serious Scripts Famotidine (PEPCID) 40 Mg Tablet 40 MG PO DAILY, #7 TAB 0 Refills Prov: TERRY ABREU D.O. 04/16/17 Docusate Sodium* (COLACE*) 100 Mg Capsule 100 MG ORAL THREE TIMES A DAY, #30 CAP Prov: TERRY ABREU D.O. 04/16/17 TERRY ABREU D.O. Apr 16, 2017 14:44
[2017-04-16 14:51] VITALS: BP 173/82
[2017-04-16 15:02] LABS: BASOPHILS % (AUTO) 0.5 % (0.0-2.0); EOSINOPHILS % (AUTO) 2.5 % (0.0-3.0); LYMPHOCYTES % (AUTO) 10.8 % (20.0-45.0); MEAN CORPUSCULAR HEMOGLOBIN 29.9 PG (27.0-31.0); MEAN CORPUSCULAR HGB CONC 33.6 G/DL (32.0-36.0); MEAN CORPUSCULAR VOLUME 89 FL (80-99); MEAN PLATELET VOLUME 8.6 FL (6.5-10.1); MONOCYTES % (AUTO) 6.2 % (1.0-10.0); NEUTROPHILS % (AUTO) 80.1 % (45.0-75.0); PLATELET COUNT 198 K/UL (150-450); RED BLOOD COUNT 3.53 M/UL (4.70-6.10); RED CELL DISTRIBUTION WIDTH 12.1 % (11.6-14.8); WHITE BLOOD COUNT 11.2 K/UL (4.8-10.8)
[2017-04-16 15:17] LABS: ALANINE AMINOTRANSFERASE 16 U/L (3-41); ALBUMIN/GLOBULIN RATIO 1.3 (1.0-2.7); ANION GAP 16 (5-15); ASPARTATE AMINO TRANSFERASE 19 U/L (5-40); CARBON DIOXIDE 26 mEQ/L (20-30); CHLORIDE 98 mEQ/L (98-107); CREATININE 1.1 mg/dL (0.7-1.2); HEMOLYSIS 18; LIPASE 44 U/L (< 60); POTASSIUM 3.3 mEQ/L (3.4-4.9); SODIUM 140 mEQ/L (135-145); TROPONIN I < 0.30 ng/mL (<=0.30)
[2017-04-16 15:27] LABS: CKMB 1.9 ng/mL (< 6.7)
[2017-04-16 15:40] LABS: APPEARANCE,URINE CLEAR; KETONES,URINE NEGATIVE (NEGATIVE); LEUKOCYTE ESTERASE ,URINE 3+ (NEGATIVE); NITRITE,URINE NEGATIVE (NEGATIVE); PH,URINE 6 (4.5-8.0); PROTEIN,URINE 2+ (NEGATIVE); UROBILINOGEN,URINE NORMAL MG/DL (0.0-1.0)
--- NOTE | 2017-04-16 15:49 | Diagnostic Imaging Report ---
Indication: Chest pain Technique: One view of the chest Comparison: none Findings: The heart is borderline enlarged. Aorta is tortuous and calcified. Lungs and pleural spaces are clear Impression: Borderline cardiomegaly. No acute process
[2017-04-16 15:55] LABS: BACTERIA,URINE FEW /HPF; YEAST,URINE FEW /HPF
[2017-04-16] MEDS ORDERED: Ketorolac 30mg Inj IV PRN (16:00)
[2017-04-16] MEDS ORDERED: DuoNeb 0.5-3(2.5)mg/3ml neb HHN PRN (16:00)
[2017-04-16] MEDS ORDERED: Diltiazem 25mg/5ml IV PRN (16:00)
[2017-04-16] MEDS ORDERED: Miralax 17gm pkt ORAL PRN (16:00)
[2017-04-16] MEDS ORDERED: Enalaprilat 2.5mg/2ml Inj IV PRN (16:00)
[2017-04-16] MEDS ORDERED: Morphine Sulfate 2mg/ml Inj IVP PRN (16:00)
[2017-04-16] MEDS ORDERED: Nitroglycerin Subl 0.4mg tab SL PRN (16:15)
--- NOTE | 2017-04-16 16:36 | Consultation ---
History of Present Illness General Chief Complaint: General Complaint Present Illness Allergies: Coded Allergies: NO KNOWN ALLERGIES (Unverified Allergy, Unknown, 03/31/15) Medication History Scheduled Diltiazem Hcl (Diltiazem Hcl), 60 MG PO EVERY 12 HOURS, (Reported) Finasteride* (Proscar*), 5 MG ORAL DAILY, (Reported) Tamsulosin Hcl (Tamsulosin Hcl*), 0.4 MG ORAL BEDTIME, (Reported) Discontinued Medications Acetaminophen* (Acetaminophen 325MG Tablet*), 650 MG ORAL Q4H PRN for For Pain, (Reported) Discontinued Reason: MD discontinued med Al Hydroxide/mg Hydroxide (Mag-Al Plus Suspension), 30 ML PO Q6HR, (Reported) Discontinued Reason: MD discontinued med Al Hydroxide/mg Hydroxide (Mag-Al Plus Suspension), 30 ML ORAL Q6HR PRN for PRN, (Reported) Discontinued Reason: MD discontinued med Ciprofloxacin Hcl* (Ciprofloxacin Hcl*), 500 MG ORAL Q12H Discontinued Reason: Therapy completed Docusate Sodium* (Docusate Sodium*), 100 MG ORAL TWICE A DAY, (Reported) Discontinued Reason: Pt stopped taking med Pantoprazole* (Protonix*), 40 MG ORAL DAILY, (Reported) Discontinued Reason: MD discontinued med Polyethylene Glycol 3350* (Miralax*), 17 GM ORAL DAILY, (Reported) Discontinued Reason: MD discontinued med Zolpidem Tartrate* (Ambien*), 5 MG ORAL BEDTIME PRN for Insomnia, (Reported) Discontinued Reason: MD discontinued med Patient History Healthcare decision maker N Resuscitation status Advanced Directive on File Physical Exam Last 24 Hour Vital Signs Date Time Temp Pulse Resp B/P (MAP) Pulse Ox O2 Delivery O2 Flow Rate FiO2 04/16/17 14:51 98.2 16 173/82 99 Room Air 04/16/17 14:18 98.2 86 16 173/82 99 Room Air Laboratory Tests Test 04/16/17 14:40 White Blood Count 11.2 K/UL (4.8-10.8) H Red Blood Count 3.53 M/UL (4.70-6.10) L Hemoglobin 10.5 G/DL (14.2-18.0) L Hematocrit 31.4 % (42.0-52.0) L Mean Corpuscular Volume 89 FL (80-99) Mean Corpuscular Hemoglobin 29.9 PG (27.0-31.0) Mean Corpuscular Hemoglobin Concent 33.6 G/DL (32.0-36.0) Red Cell Distribution Width 12.1 % (11.6-14.8) Platelet Count 198 K/UL (150-450) Mean Platelet Volume 8.6 FL (6.5-10.1) Neutrophils (%) (Auto) 80.1 % (45.0-75.0) H Lymphocytes (%) (Auto) 10.8 % (20.0-45.0) L Monocytes (%) (Auto) 6.2 % (1.0-10.0) Eosinophils (%) (Auto) 2.5 % (0.0-3.0) Basophils (%) (Auto) 0.5 % (0.0-2.0) Urine Color Pale yellow Urine Appearance Clear Urine pH 6 (4.5-8.0) Urine Specific [place] 1.005 (1.005-1.035) Urine Protein 2+ (NEGATIVE) H Urine Glucose (UA) Negative (NEGATIVE) Urine Ketones Negative (NEGATIVE) Urine Occult Blood 5+ (NEGATIVE) H Urine Nitrite Negative (NEGATIVE) Urine Bilirubin Negative (NEGATIVE) Urine Urobilinogen Normal MG/DL (0.0-1.0) Urine Leukocyte Esterase 3+ (NEGATIVE) H Urine RBC 5-10 /HPF (0 - 0) H Urine WBC 2-4 /HPF (0 - 0) Urine Squamous Epithelial Cells None /LPF (NONE/OCC) Urine Bacteria Few /HPF (NONE) Urine Yeast Few /HPF (NONE) H Sodium Level 140 mEQ/L (135-145) Potassium Level 3.3 mEQ/L (3.4-4.9) L Chloride Level 98 mEQ/L (98-107) Carbon Dioxide Level 26 mEQ/L (20-30) Anion Gap 16 (5-15) H Blood Urea Nitrogen 8 mg/dL (7-23) Creatinine 1.1 mg/dL (0.7-1.2) Estimat Glomerular Filtration Rate mL/min (>60) Glucose Level 93 mg/dL (74-106) Calcium Level 9.0 mg/dL (8.6-10.2) Total Bilirubin 0.3 mg/dL (0.0-1.2) Aspartate Amino Transf (AST/SGOT) 19 U/L (5-40) Alanine Aminotransferase (ALT/SGPT) 16 U/L (3-41) Alkaline Phosphatase 77 U/L (40-129) Total Creatine Kinase 115 U/L (38-174) Creatine Kinase MB 1.9 ng/mL (< 6.7) Creatine Kinase MB Relative Index 1.6 Troponin I < 0.30 ng/mL (<=0.30) Total Protein 7.0 g/dL (6.6-8.7) Albumin 4.0 g/dL (3.5-5.2) Globulin 3.0 g/dL Albumin/Globulin Ratio 1.3 (1.0-2.7) Lipase 44 U/L (< 60) Height (Feet): 5 Height (Inches): 5.00 Weight (Pounds): 125 Medications Current Medications Medications (Trade) Dose Ordered Sig/Dexter Route PRN Reason Start Time Stop Time Status Last Admin Dose Admin Acetaminophen (Tylenol) 650 mg Q4H PRN ORAL T>100.5 04/16/17 16:00 05/16/17 15:59 Albuterol/ Ipratropium (DuoNeb 0.5-3(2.5)mg/3ml) 3 ml Q4H PRN HHN Shortness of Breath 04/16/17 16:00 04/21/17 15:59 Aspirin (ASA) 162 mg DAILY ORAL 04/17/17 09:00 05/17/17 08:59 Diltiazem HCl (Cardizem) 10 mg EVERY HOUR PRN IV heart rate more than 120 bpm 04/16/17 16:00 05/16/17 15:59 Diltiazem HCl (Cardizem) 60 mg EVERY 12 HOURS ORAL 04/16/17 21:00 05/16/17 20:59 Enalaprilat (Vasotec) 2.5 mg Q6H PRN IV sbp more than 160mmHg 04/16/17 16:00 05/16/17 15:59 Finasteride (Proscar) 5 mg DAILY ORAL 04/17/17 09:00 05/17/17 08:59 Heparin Sodium (Porcine) (Heparin 5000 units/ml) 5,000 units EVERY 12 HOURS SUBQ 04/16/17 21:00 05/16/17 20:59 Morphine Sulfate (Morphine Sulfate) 2 mg Q4H PRN IVP Severe Pain (Pain Scale 7-10) 04/16/17 16:00 04/23/17 15:59 Nitroglycerin (Ntg) 0.4 mg Q5MIN X 3 DOSES PRN SL Prn Chest Pain 04/16/17 16:15 05/16/17 16:14 Ondansetron HCl (Zofran) 4 mg Q6H PRN IVP Nausea & Vomiting 04/16/17 16:00 05/16/17 15:59 Pantoprazole (Protonix) 40 mg DAILY ORAL 04/17/17 09:00 05/17/17 08:59 Polyethylene Glycol (Miralax) 17 gm DAILYPRN PRN ORAL Constipation 04/16/17 16:00 05/16/17 15:59 Tamsulosin HCl (Flomax) 0.4 mg BEDTIME ORAL 04/16/17 21:00 05/16/17 20:59 Temazepam (Restoril) 15 mg HSPRN PRN ORAL Insomnia 04/16/17 21:00 04/23/17 20:59 STEVEN STRONG Apr 16, 2017 16:36
[2017-04-16] MEDS ORDERED: PEPCID40 MG PO (16:42)
[2017-04-16] MEDS ORDERED: COLACE100 MG ORAL (16:42)
[2017-04-16 17:11] VITALS: BP 173/82
[2017-04-16] MEDS ORDERED: Heparin 5000 units/ml inj SUBQ SCH (21:00)
[2017-04-16] MEDS ORDERED: Tamsulosin 0.4mg cap ORAL SCH (21:00)
[2017-04-17] MEDS ORDERED: Aspirin Baby 81mg ORAL SCH (09:00)
--- NOTE | 2017-04-17 16:34 | Cardiology Report ---
APPROVED REPORT EKG Measurement Heart [id number] Normal sinus rhythm Possible Left atrial enlargement Left ventricular hypertrophy Abnormal ECG
== END 2017-04-16 17:00 | disposition left against medical advice (07) ==
LOC: EMR 14:55 → 2E 15:17 → UNDOADMIN 15:17 → EDBEDREQ 15:31 → CANBEDREQ 17:10
DX: I24.9 Acute ischemic heart disease, unspecified (principal); R10.9 Unspecified abdominal pain; H54.8 Legal blindness, as defined in USA; I10 Essential (primary) hypertension
CPT/HCPCS: 36415; 71010; 80053; 81003; 82550; 82553; 83690; 84484; 85025; 87086; 93005; 96361; 96372; 96374; 96375; 99285